=== PATIENT | female | born 1985 | race Caucasian/White ===

== ENCOUNTER 2018-04-29 22:21 | Inpatient (IN) ==
[2018-04-29] MEDS ORDERED: Sod Chloride 0.9% Inj 1,000 ML IV.SIG ONE (22:37)
--- NOTE | 2018-04-29 22:46 | ED ---
HPI General Chief complaint: Overdose Stated complaint: Psych Eval-DBPD Time Seen by Provider: 04/29/18 22:37 History of Present Illness HPI narrative: Patient is a 33-year-old female brought in by EMS under Alcocer act for evaluation after what appears to be a suicide attempt. Patient took an unknown amount of Tegretol and benzodiazepines. Patient opens her mouth and what appears to be an attempt to speak and then opens her eyes looks at me and then shuts her eyes again. She is very uncooperative with history and physical. She was examined with nurse grip assembler present all times. History severely limited by the patient's psychosis/altered mental status. Related Data Home Medications Medication Instructions Recorded Confirmed Unable to Obtain Home Meds 04/30/18 04/30/18 Allergies Allergy/AdvReac Type Severity Reaction Status Date / Time No Allergy Information Allergy Unverified 04/29/18 22:37 Available Review of Systems ROS Unobtainable unobtainable due to mental condition and unobtainable due to mental status PMFSH Medical History Medical History Mood disorder (Acute) Surgical history unknown (Acute) Social History Social History Smoking Status: Unknown if ever smoked How Often Do You Have a Drink Containing Alcohol: Monthly or less Exam Narrative Exam Narrative: Patient exam limited by altered mental status/psychosis. Exam with nurse grip assembler present all times. GENERAL: Well-developed well-nourished no obvious distress. SKIN: Focused skin assessment warm/dry. HEAD: Atraumatic. Normocephalic. EYES: Pupils equal and round. No scleral icterus. No injection or drainage. Pupils are dilated to 7-8 mm equal bilaterally. ENT: No nasal bleeding or discharge. Mucous membranes pink and moist. NECK: Trachea midline. No JVD. CARDIOVASCULAR: Regular rhythm with tachycardia. No murmur appreciated. 2+ bilateral equal pulses in all 4 extremities RESPIRATORY: No accessory muscle use. Clear to auscultation. Breath sounds equal bilaterally. GASTROINTESTINAL: Abdomen soft, non-tender, nondistended. Hepatic and splenic margins not palpable. MUSCULOSKELETAL: No obvious deformities. No clubbing. No cyanosis. No edema. NEUROLOGICAL: Awake and alert, initial GCS is [id number]. I think this was because of patient psychiatric condition/uncooperative. She then spoke a few words of history a few hours later. At 1515 reassessed and now confused and stuttering. PSYCHIATRIC: Unable to assess Course Initial Documented Vital Signs Temperature 98.4 F 04/29/18 23:02 Pulse Rate 125 H 04/29/18 23:02 Respiratory Rate 25 H 04/29/18 23:02 Blood Pressure 139/89 04/29/18 23:02 Pulse Oximetry 98 04/29/18 23:02 Last Documented Vital Signs Temperature 98.6 F 04/30/18 07:20 Pulse Rate 128 H 04/30/18 07:20 Respiratory Rate 24 04/30/18 07:20 Blood Pressure 133/84 04/30/18 07:20 Pulse Oximetry 98 04/30/18 07:20 Critical Care Time Critical Care Time: Yes Total Critical Care Time: 35 Attestation: Aggregate critical care time was 35 minutes. Time to perform other separately billable procedures was not included in the critical care time. My time did not include minutes spent treating any other patients simultaneously or on activities that did not directly contribute to the patient's treatment. The services I provided to this patient were to treat and/or prevent clinically significant deterioration that could result in: , disability, organ failure I provided critical care services requiring my management, as noted below: Chart data review, documentation time, medication orders and management, vital sign assessments/reviewing monitor data, ordering and reviewing lab tests, ordering and interpreting/reviewing x-rays and diagnostic studies, care of the patient and discussion of the patient with the admitting physicians. Medical Decision Making MDM Narrative Medical decision making narrative: Patient room to the emergency department, initially she was reluctant to speak to me, later through her evaluation she was able to talk with nursing was preferred to talk with nursing more than to me. As time went on the patient's pupils became more dilated and she is becoming more confused with a very stuttered speech pattern. Working closely with poison control, Tegretol level was checked on arrival was 19, time of 3 hours in the emergency department was redrawn and is now gone up to 21. After discussion with poison control possibility of charcoal was considered given the biliary recirculation of the drug however I do not think that the patient would be able to tolerate this very well and I fear aspiration in her. Therefore we have decided to hold it. This was discussed with Dr. Meng and she is agreeable. Patient was given 2 L normal saline and remain Arctic, given her confusion increasing I decided to give her a dose of Ativan 1 IV. Given her mental status is actually worsening requested ICU admission for the night. Per poison control patient could theoretically be cleared if she had to downgoing Tegretol levels and her mental status was improving. This was discussed with Dr. Meng. CT of the head was added on as well. We are still waiting test and urine drug screen. Patient is under Alcocer act Differential Diagnosis Differential Diagnosis: Tegretol overdose, Tylenol overdose, salicylate overdose , acidosis, electrolyte abnormality. Lab Data Result diagrams: 04/29/18 23:00 04/29/18 23:00 Lab Results 04/29/18 04/29/18 04/29/18 Range/Units 23:00 23:00 23:00 WBC 7.3 (4.0-11.0) th/mm3 RBC 5.04 (4.00-5.30) mil/mm3 Hgb 14.9 (11.6-15.3) gm/dL Hct 44.4 (35.0-46.0) % MCV 88.1 (80.0-100.0) fL MCH 29.5 (27.0-34.0) pg MCHC 33.5 (32.0-36.0) % RDW 13.3 (11.6-17.2) % Plt Count 293 (150-450) th/mm3 MPV 8.1 (7.0-11.0) fL Neut % (Auto) 60.0 (16.0-70.0) % Lymph % (Auto) 33.3 (9.0-44.0) % [place] % (Auto) 5.4 (0.0-8.0) % Eos % (Auto) 0.1 (0.0-4.0) % Baso % (Auto) 1.2 (0.0-2.0) % Neut # (Auto) 4.4 (1.8-7.7) th/mm3 Lymph # (Auto) 2.4 (1.0-4.8) th/mm3 [place] # (Auto) 0.4 (0.0-0.9) th/mm3 Eos # (Auto) 0.0 (0.0-0.4) th/mm3 Baso # (Auto) 0.1 (0.0-0.2) th/mm3 WBC Differential . Differential Comment Auto diff final Sodium 137 (136-145) meq/L Potassium 3.5 (3.5-5.1) meq/L Chloride 100 (98-107) meq/L Carbon Dioxide 22.5 (21.0-32.0) meq/L Anion Gap 15 (5-15) meq/L BUN 11 (7-18) mg/dL Creatinine 0.77 (0.50-1.00) mg/dL Estimated GFR 86 L (>89) mL/min Random Glucose 118 H (74-106) mg/dL Calcium 8.1 L (8.5-10.1) mg/dL Total Bilirubin 0.4 (0.2-1.0) mg/dL AST 47 H (15-37) U/L ALT 36 (10-53) U/L Alkaline Phosphatase 109 (45-117) U/L Total Creatine Kinase 184 (26-192) U/L Total Protein 7.6 (6.4-8.2) g/dL Albumin 4.0 (3.4-5.0) g/dL TSH 1.980 (0.358-3.740) uIU/mL Salicylates Less than 1.7 L (2.8-20.0) mg/dL Urine Opiates Screen (Neg) Acetaminophen 4.4 L (10.0-30.0) mcg/mL Ur Barbiturates Screen (Neg) Carbamazepine 19.3 H* (4.0-12.0) mcg/mL Ur Amphetamines Screen (Neg) U Benzodiazepines Scrn (Neg) Urine Cocaine Screen (Neg) U Cannabinoids Screen (Neg) Serum Alcohol 184 H (0-5) mg/dL 04/30/18 04/30/18 04/30/18 Range/Units 02:00 03:30 04:33 WBC (4.0-11.0) th/mm3 RBC (4.00-5.30) mil/mm3 Hgb (11.6-15.3) gm/dL Hct (35.0-46.0) % MCV (80.0-100.0) fL MCH (27.0-34.0) pg MCHC (32.0-36.0) % RDW (11.6-17.2) % Plt Count (150-450) th/mm3 MPV (7.0-11.0) fL Neut % (Auto) (16.0-70.0) % Lymph % (Auto) (9.0-44.0) % [place] % (Auto) (0.0-8.0) % Eos % (Auto) (0.0-4.0) % Baso % (Auto) (0.0-2.0) % Neut # (Auto) (1.8-7.7) th/mm3 Lymph # (Auto) (1.0-4.8) th/mm3 [place] # (Auto) (0.0-0.9) th/mm3 Eos # (Auto) (0.0-0.4) th/mm3 Baso # (Auto) (0.0-0.2) th/mm3 WBC Differential Differential Comment Sodium (136-145) meq/L Potassium (3.5-5.1) meq/L Chloride (98-107) meq/L Carbon Dioxide (21.0-32.0) meq/L Anion Gap (5-15) meq/L BUN (7-18) mg/dL Creatinine (0.50-1.00) mg/dL Estimated GFR (>89) mL/min Random Glucose (74-106) mg/dL Calcium (8.5-10.1) mg/dL Total Bilirubin (0.2-1.0) mg/dL AST (15-37) U/L ALT (10-53) U/L Alkaline Phosphatase (45-117) U/L Total Creatine Kinase (26-192) U/L Total Protein (6.4-8.2) g/dL Albumin (3.4-5.0) g/dL TSH (0.358-3.740) uIU/mL Salicylates (2.8-20.0) mg/dL Urine Opiates Screen Neg (Neg) Acetaminophen Less than 2.0 L (10.0-30.0) mcg/mL Ur Barbiturates Screen Neg (Neg) Carbamazepine 21.0 H* 24.6 H* (4.0-12.0) mcg/mL Ur Amphetamines Screen Neg (Neg) U Benzodiazepines Scrn Neg (Neg) Urine Cocaine Screen Neg (Neg) U Cannabinoids Screen Neg (Neg) Serum Alcohol (0-5) mg/dL 04/30/18 Range/Units 06:30 WBC (4.0-11.0) th/mm3 RBC (4.00-5.30) mil/mm3 Hgb (11.6-15.3) gm/dL Hct (35.0-46.0) % MCV (80.0-100.0) fL MCH (27.0-34.0) pg MCHC (32.0-36.0) % RDW (11.6-17.2) % Plt Count (150-450) th/mm3 MPV (7.0-11.0) fL Neut % (Auto) (16.0-70.0) % Lymph % (Auto) (9.0-44.0) % [place] % (Auto) (0.0-8.0) % Eos % (Auto) (0.0-4.0) % Baso % (Auto) (0.0-2.0) % Neut # (Auto) (1.8-7.7) th/mm3 Lymph # (Auto) (1.0-4.8) th/mm3 [place] # (Auto) (0.0-0.9) th/mm3 Eos # (Auto) (0.0-0.4) th/mm3 Baso # (Auto) (0.0-0.2) th/mm3 WBC Differential Differential Comment Sodium (136-145) meq/L Potassium (3.5-5.1) meq/L Chloride (98-107) meq/L Carbon Dioxide (21.0-32.0) meq/L Anion Gap (5-15) meq/L BUN (7-18) mg/dL Creatinine (0.50-1.00) mg/dL Estimated GFR (>89) mL/min Random Glucose (74-106) mg/dL Calcium (8.5-10.1) mg/dL Total Bilirubin (0.2-1.0) mg/dL AST (15-37) U/L ALT (10-53) U/L Alkaline Phosphatase (45-117) U/L Total Creatine Kinase (26-192) U/L Total Protein (6.4-8.2) g/dL Albumin (3.4-5.0) g/dL TSH (0.358-3.740) uIU/mL Salicylates (2.8-20.0) mg/dL Urine Opiates Screen (Neg) Acetaminophen (10.0-30.0) mcg/mL Ur Barbiturates Screen (Neg) Carbamazepine 25.7 H* (4.0-12.0) mcg/mL Ur Amphetamines Screen (Neg) U Benzodiazepines Scrn (Neg) Urine Cocaine Screen (Neg) U Cannabinoids Screen (Neg) Serum Alcohol (0-5) mg/dL Imaging Data Radiologist's impression: Head CT 04/30/18 03:03 CONCLUSION: 1. Negative noncontrast head CT. Discharge Plan Discharge Disposition Patient Disposition: 30 Still Patient Discharge Condition Condition: Serious Discharge Details Diagnosis: Carbamazepine overdose of undetermined intent Physicians Team ED Provider: Adarsh Manning Primary Care Provider: UNKNOWN, Attending Provider: Jennifer Meng Other Providers: Raymon Anderson Discharge Interventions Interventions: ED Discharge Assessment Last Done: 04/30/18 08:17 Status ED Status: Left Department Discharge Information Discharge Date/Time: 04/30/18 08:20
[2018-04-29 23:22] LABS: Baso # (Auto) 0.1 th/mm3 (0.0-0.2); Baso % (Auto) 1.2 % (0.0-2.0); Eos % (Auto) 0.1 % (0.0-4.0); Hematocrit 44.4 % (35.0-46.0); Hemoglobin 14.9 gm/dL (11.6-15.3); Lymph # (Auto) 2.4 th/mm3 (1.0-4.8); Lymph % (Auto) 33.3 % (9.0-44.0); Mean Corpuscular HGB Conc 33.5 % (32.0-36.0); Mean Corpuscular Hemoglobin 29.5 pg (27.0-34.0); Mean Corpuscular Volume 88.1 fL (80.0-100.0); Mean Platelet Volume 8.1 fL (7.0-11.0); Mono # (Auto) 0.4 th/mm3 (0.0-0.9); Mono % (Auto) 5.4 % (0.0-8.0); Neut # (Auto) 4.4 th/mm3 (1.8-7.7); Platelet Count 293 th/mm3 (150-450); Red Blood Count 5.04 mil/mm3 (4.00-5.30); Red Cell Distribution Width 13.3 % (11.6-17.2); White Blood Count 7.3 th/mm3 (4.0-11.0)
[2018-04-29 23:49] LABS: Anion Gap 15 meq/L (5-15); Aspartate Aminotransferase 47 U/L (15-37); Blood Urea Nitrogen 11 mg/dL (7-18); Calcium 8.1 mg/dL (8.5-10.1); Carbon Dioxide 22.5 meq/L (21.0-32.0); Chloride 100 meq/L (98-107); Glomerular Filtration Rate 86 mL/min (>89); Glucose,Random 118 mg/dL (74-106); Potassium 3.5 meq/L (3.5-5.1); Sodium 137 meq/L (136-145)
[2018-04-29 23:51] LABS: Alcohol 184 mg/dL (0-5)
[2018-04-29 23:59] LABS: Acetaminophen 4.4 mcg/mL (10.0-30.0); Alanine Aminotransferase 36 U/L (10-53); Alkaline Phosphatase 109 U/L (45-117); Creatine Kinase 184 U/L (26-192); Total Protein 7.6 g/dL (6.4-8.2)
[2018-04-30 00:16] LABS: Carbamazepine (Tegretol) 19.3 mcg/mL (4.0-12.0)
--- NOTE | 2018-04-30 03:49 | P.HPCC ---
History of Present Illness Service: Critical care medicine Primary Care Physician: UNKNOWN Chief Complaint: Tegretol overdose History of Present Illness: 33-year-old female with past medical history of mood disorder for which she takes Tegretol. She is here under Alcocer Act for overdose of tegretol and benzodiazepine. She is not able to tell me when she took it or how much she took. She says it is NOT extended release Tegretol. She tells me she was not trying to harm herself, that she was just trying to go to sleep. No history of seizures. Initial tegretol level was 19.3, continued uptrend. Neuro status declining during period of ED observation. Her speech is slow and dysarthric and she has nystagmus, mydriasis, ataxia. She is not able to tell me if she is prescribed any other meds. - Diagnosis (1) Carbamazepine overdose of undetermined intent Inpatient Certification: I certify that the inpatient services were ordered in accordance with Medicare regulations governing the order. This includes certification that hospital inpatient services are reasonable and necessary and in the case of services not specified as inpatient-only under 42 CFR 419.22(n), that they are appropriately provided as inpatient services in accordance to with the 2-midnight benchmark under 43 CFR 412.3(e) Review of Systems Constitutional: Denies fever(s), Denies headache(s) Eyes: Reports change in vision Ears, Nose, Mouth, and Throat: Reports dry mouth Cardiovascular: Reports fast heart rate, Denies chest pain Gastrointestinal: Denies abdominal pain Neurologic: Reports abnormal movements, Reports abnormal walking, Reports behavioral changes PMFSH - History History Provided By: Kayaking Instructor / EMT - Medical History Medical History: Medical History (Last Updated 04/30/18 @ 09:12 by Jennifer Meng MD) Mood disorder - Surgical History Surgical History: Surgical History (Last Updated 04/30/18 @ 09:12 by Jennifer Meng MD) Hx of section - Family History Family History: Family History (Last Updated 04/30/18 @ 09:12 by Jennifer Meng MD) Other No significant medical problems - Tobacco History Smoking Status: Never smoker - Alcohol History How Often Do You Have a Drink Containing Alcohol: 2 to 3 times a week - Substance Use History Substance History: No History of Abuse - Immunization History Tetanus Immunization: Unsure Hx Influenza Vaccine This Season: Unable to Assess Medications and Allergies Active Medications: Active Medications Lorazepam (Ativan Inj) 2 mg IV.PUSH Q15M PRN PRN Reason: seizure Allergies Allergy/AdvReac Type Severity Reaction Status Date / Time No Allergy Information Allergy Unverified 04/29/18 22:37 Available Home Medications Medication Instructions Recorded Confirmed Type Unable to Obtain Home Meds 04/30/18 04/30/18 History Results - Labs CBC & Chem 7: 04/29/18 23:00 04/29/18 23:00 Labs: Short CBC 04/29/18 Range/Units 23:00 WBC 7.3 (4.0-11.0) th/mm3 Hgb 14.9 (11.6-15.3) gm/dL Hct 44.4 (35.0-46.0) % Plt Count 293 (150-450) th/mm3 BMP 04/29/18 23:00 Sodium 137 Potassium 3.5 Chloride 100 Carbon Dioxide 22.5 BUN 11 Creatinine 0.77 Calcium 8.1 L Cardiac Enzymes 04/29/18 Range/Units 23:00 Total Creatine Kinase 184 (26-192) U/L Liver Function 04/29/18 Range/Units 23:00 Total Bilirubin 0.4 (0.2-1.0) mg/dL AST 47 H (15-37) U/L ALT 36 (10-53) U/L Alkaline Phosphatase 109 (45-117) U/L Albumin 4.0 (3.4-5.0) g/dL Exam Vital signs: Vital Signs 04/29/18 23:02 Temperature 98.4 F Pulse Rate 125 H Respiratory Rate 25 H Blood Pressure 139/89 Pulse Oximetry 98 Intake & Output 04/29/18 04/29/18 04/30/18 06:59 18:59 06:59 Weight 70 kg Narrative: GENERAL: Well-nourished and well-developed patient who is laying in ED stretcher. SKIN: Dry. HEAD: Atraumatic. Normocephalic. EYES: + mydriasis. No scleral icterus. No injection or drainage. ENT: No nasal bleeding or discharge. Mucous membranes dry NECK: Trachea midline. No JVD. CARDIOVASCULAR: Tachycardic, regular, sinus on the monitor with rate in the 120s. No murmurs rubs or gallops. RESPIRATORY: No accessory muscle use. Clear to auscultation. Breath sounds equal bilaterally. On room air. GASTROINTESTINAL: Abdomen soft, non-tender, nondistended. Hepatic and splenic margins not palpable. MUSCULOSKELETAL: Extremities without clubbing, cyanosis, or edema. No obvious deformities. NEUROLOGICAL: She awakens to voice and opens eyes briefly. She answers questions but is very slow to speak, dysarthric. + Horizontal nystagmus. Pupils are as per above. She moves all extremities to command, ataxic. Also spontaneous choreiform movements. No clonus Caprini VTE Risk Assessment Caprini VTE Risk Assessment: Moderate/High Risk (score >= 2) Caprini Risk Assessment Model: Point Value = 1 Point Value = 2 Point Value = 3 Point Value = 5 Age 41-60 Minor surgery BMI > 25 kg/m2 Swollen legs Varicose veins or History of unexplained or recurrent spontaneous Oral contraceptives or hormone replacement Sepsis (< 1 month) Serious lung disease, including pneumonia (< 1 month) Abnormal pulmonary function Acute myocardial infarction Congestive heart failure (< 1 month) History of inflammatory bowel disease Medical patient at bed rest Age 61-74 Arthroscopic surgery Major open surgery (> 45 min) Laparoscopic surgery (> 45 min) Malignancy Confined to bed (> 72 hours) Immobilizing plaster cast Central venous access Age >= 75 History of VTE Family history of VTE Factor V Leiden Prothrombin [id number] Lupus anticoagulant Anticardiolipin antibodies Elevated serum homocysteine Heparin-induced thrombocytopenia Other congenital or acquired thrombophilia Stroke (< 1 month) Elective arthroplasty Hip, pelvis, or leg fracture Acute spinal cord injury (< 1 month) Prophylaxis Regimen: Total Risk Factor Score Risk Level Prophylaxis Regimen 0-1 Low Early ambulation 2 Moderate Order ONE of the following: *Sequential Compression Device (SCD) *Heparin 5000 units SQ BID 3-4 Higher Order ONE of the following medications: *Heparin 5000 units SQ TID *Enoxaparin/Lovenox 40 mg SQ daily (WT < 150 kg, CrCl > 30 mL/min) *Enoxaparin/Lovenox 30 mg SQ daily (WT < 150 kg, CrCl > 10-29 mL/min) *Enoxaparin/Lovenox 30 mg SQ BID (WT < 150 kg, CrCl > 30 mL/min) AND/OR *Sequential Compression Device (SCD) 5 or more Highest Order ONE of the following medications: *Heparin 5000 units SQ TID (Preferred with Epidurals) *Enoxaparin/Lovenox 40 mg SQ daily (WT < 150 kg, CrCl > 30 mL/min) *Enoxaparin/Lovenox 30 mg SQ daily (WT < 150 kg, CrCl > 10-29 mL/min) *Enoxaparin/Lovenox 30 mg SQ BID (WT < 150 kg, CrCl > 30 mL/min) AND *Sequential Compression Device (SCD) Assessment and Plan - Problem List (1) Carbamazepine overdose of undetermined intent Code(s): T42.1X4A - Poisoning by iminostilbenes, undetermined, initial encounter Status: Acute - Assessment and Plan Plan: NEURO: Acute encephalopathy secondary to Tegretol and benzodiazepine overdose. -ataxia, nystagmus, mydriasis, vision changes, abnormal speech Alcocer act for suicidal tendencies Poison control was contacted by Dr. Manning. Serial Tegretol level every 2 hours. Neuro symptoms are progressing and expect prolonged absorption, expect level will continue to rise. Contacted Dr. Anderson and he agrees with proceeding with dialysis. Monitor QRS and QTc. If QRS prolongs, will treat with bicarb. Seizure precautions, Ativan prn seizure. CT brain negative. Psychiatry consult when she is able to participate. RESP: On room air. Monitor for airway protection. Intubate if needed. CV: Sinus tachycardia Monitor hemodynamics, monitor QRS and QTc intervals. GI: NPO until mental status improves FEN/RENAL: Serial bladder scans and in and out cath as needed for expected urinary retention Received 1 L normal saline bolus in the emergency department D5 0.9 NaCl at 100 mL/h ID: Monitor for signs and symptoms of infection HEME: Monitor CBC for signs of hematologic toxicity ENDO: Euglycemic PROPH: SCDs and heparin subcu for DVT prophylaxis. Protonix for stress ulcer prophylaxis ACCESS: Peripheral IV. Will need Vas-Cath placement. Full code Patient is critically ill with life-threatening overdose with Tegretol. Without treatment could have refractory seizures, coma, . Required urgent consultation with nephrology for initiation of hemodialysis. Critical care time 60 minutes exclusive of separately billable procedures. (1) Carbamazepine overdose of undetermined intent Qualifiers: Encounter type: initial encounter Qualified Code(s): T42.1X4A - Poisoning by iminostilbenes, undetermined, initial encounter
[2018-04-30 03:50] LABS: Amphetamine Screen,Urine Neg (Neg); Barbiturate Screen,Urine Neg (Neg); Cannabinoid Screen,Urine Neg (Neg); Cocaine Screen,Urine Neg (Neg)
[2018-04-30 03:59] LABS: Opiate Screen,Urine Neg (Neg)
--- NOTE | 2018-04-30 04:11 | CT ---
EXAM DATE: 04/30/2018 3:43 AM EDT AGE/SEX: 33 years / Female INDICATIONS: Altered mental status. Possible overdose. CLINICAL DATA: This is the patient's initial encounter. Patient reports that signs and symptoms have been present for 1 day and indicates a pain score of Nonresponsive. MEDICAL/SURGICAL HISTORY: Seizures. None. RADIATION DOSE: 56.35 CTDI (mGy) COMPARISON: No prior exams available for comparison. TECHNIQUE: CT of the head without contrast. Using automated exposure control and adjustment of the mA and/or kV according to patient size, radiation dose was kept as low as reasonably achievable to ob tain optimal diagnostic quality images. DICOM format image data is available electronically for revi ew and comparison. FINDINGS: Cerebrum: The ventricles are normal for age. No evidence of midline shift, mass lesion, hemorrhage or acute infarction. No extraaxial fluid collections are seen. Posterior Fossa: The cerebellum and brainstem are intact. The 4th ventricle is midline. The cerebe llopontine angle is unremarkable. Extracranial: The visualized portion of the orbits is intact. Skull: The calvaria is intact. No evidence of skull fracture. CONCLUSION: 1. Negative noncontrast head CT. Electronically signed by: Heri Vela MD 04/30/2018 4:10 AM EDT
[2018-04-30] MEDS ORDERED: Bisacodyl 10 MG Supp RECTAL PRN (05:30)
[2018-04-30] MEDS: Dextrose 5%/NaCl 0.9% Inj 1,000 ML IV.CONT SCH ×2 (05:57→17:46)
[2018-04-30] MEDS ORDERED: Midazolam Inj 5 MG/ML 1 ML Vial ONE (08:31)
[2018-04-30] MEDS ORDERED: Sod Chloride 0.9% Inj 1,000 ML OTHER PRN ×2 (09:11)
[2018-04-30] MEDS ORDERED: Acetaminophen 325 MG Tablet PO PRN (09:11)
[2018-04-30] MEDS ORDERED: Albumin Human 25% Inj 100 ML IV.SIG PRN (09:11)
[2018-04-30] MEDS ORDERED: Gelatin 12 MM/7 MM Topical Foam TOPICAL PRN (09:11)
[2018-04-30] MEDS ORDERED: Sod Chloride 0.9% Inj 1,000 ML IV.CONT PRN (09:11)
[2018-04-30] MEDS ORDERED: Heparin 10,000 UNITS/10 ML Vial (for IV use) OTHER PRN ×2 (09:11)
--- NOTE | 2018-04-30 09:28 | P.CONNP ---
History of Present Illness Service: Nephrology Consult date: 04/30/18 Requesting Physician: Jennifer Meng Reason for Consult: Tegretal overdose Primary Care Provider: UNKNOWN Chief Complaint: Tegretol overdose History of Present Illness: Patient is a 33 year old female with a apparent Tegretol overdose. Patient has altered mental status with slow and dysarthric speech. She was able to follow commands. in soft limb restraints. Per records patient was brought in by EMS under [place] act for evaluation after what appears to be a suicide attempt. Takes Tegretol for mood disorder. Unknown amount of Tegretol ingestion. Tegretol levels on admission elevated at 19.3 and now has risen to 25.7. Nephrology is consulted for Tegretol overdose and need for hemodialysis. Review of Systems unobtainable due to mental condition PMFSH - History History Provided By: Pack Puller / EMT - Medical History Medical History: Medical History (Last Updated 04/30/18 @ 09:12 by Jennifer Meng MD) Mood disorder - Surgical History Surgical History: Surgical History (Last Updated 04/30/18 @ 09:12 by Jennifer Meng MD) Hx of section - Family History Family History: Family History (Last Updated 04/30/18 @ 09:12 by Jennifer Meng MD) Other No significant medical problems - Tobacco History Smoking Status: Unknown if ever smoked - Alcohol History How Often Do You Have a Drink Containing Alcohol: Monthly or less - Immunization History Tetanus Immunization: Unsure Hx Influenza Vaccine This Season: Unable to Assess Medications and Allergies Active Medications: Active Medications Acetaminophen (Tylenol) 650 mg PO UNSCH PRN PRN Reason: SEE LABEL COMMENTS Al Hydroxide/Mg Hydroxide (Milk Of Ree Singh) 30 ml PO Q12H PRN PRN Reason: Mild Constipation Albuterol (Albuterol Neb (Prn)) 2.5 mg NEB Q2HR NEB PRN PRN Reason: SHORTNESS OF BREATH/WHEEZING Bisacodyl (Dulcolax Supp) 10 mg RECTAL DAILY PRN PRN Reason: SEVERE CONSITIPATION Chlorhexidine Gluconate (Chlorhexidine 2% Cloth) 3 pack TOPICAL DAILY@0400 DONNIE Stop: 05/06/18 03:59 Chlorhexidine Gluconate (Chlorhexidine 2% Cloth) 3 pack TOPICAL DAILY@0400 PRN PRN Reason: Extra cloth needed Stop: 05/06/18 03:59 Clonidine HCl (Catapres) 0.1 mg PO UNSCH PRN PRN Reason: SEE LABEL COMMENTS Diphenhydramine HCl (Benadryl) 25 mg PO UNSCH PRN PRN Reason: SEE LABEL COMMENTS Gelatin (Gelfoam 12 Mm/7 Mm Topical) 1 foam TOPICAL PRN PRN PRN Reason: help stop bleeding from site Gentamicin Sulfate (Gentamicin Inj) 20 mg OTHER WITH DIALYSIS PRN PRN Reason: Dwell Gentamycin Lock Heparin Sodium (Porcine) (Heparin Inj) 1,000 units OTHER WITH DIALYSIS PRN PRN Reason: Dwell Heparin to Fill Catheter Heparin Sodium (Porcine) (Heparin Inj) 8,000 units OTHER WITH DIALYSIS PRN PRN Reason: for machine prime Dextrose/Sodium Chloride (D5w/Normal Saline Inj) 1,000 mls @ 100 mls/hr IV.CONT .Q10H DONNIE Last Admin: 04/30/18 05:57 Dose: 100 mls/hr Albumin Human (Flexbumin 25% Inj) 100 mls @ 60 mls/hr IV.SIG WITH DIALYSIS PRN PRN Reason: hypotension / volume replace Sodium Chloride (Ns Inj) 1,000 mls @ 0 mls/hr OTHER .Q0M PRN PRN Reason: for prime and rinse back Sodium Chloride (Ns Inj) 1,000 mls @ 200 mls/hr OTHER .Q5H PRN PRN Reason: for dialyzer flush PRN Sodium Chloride (Ns Inj) 1,000 mls @ 0 mls/hr IV.CONT .Q0M PRN PRN Reason: hypotension / volume replace Lactulose (Lactulose Liq) 30 ml PO DAILY PRN PRN Reason: SEVERE CONSITIPATION Lorazepam (Ativan Inj) 2 mg IV.PUSH Q15M PRN PRN Reason: seizure Mannitol (Mannitol Inj) 12.5 gm IV.PUSH UNSCH PRN PRN Reason: hypotension / volume replace Midazolam HCl (Versed Inj) 2 mg IV.PUSH ONCE DONNIE Nitroglycerin (Nitrostat Sl) 0.4 mg SL Q5M PRN PRN Reason: CHEST PAIN Ondansetron HCl (Zofran Odt) 4 mg PO Q6H PRN PRN Reason: NAUSEA OR VOMITING Ondansetron HCl (Zofran Inj) 4 mg IV.PUSH UNSCH PRN PRN Reason: NAUSEA OR VOMITING Pantoprazole Sodium (Protonix Inj) 40 mg IV.PUSH DAILY DONNIE Senna/Docusate Sodium (Kiarra-Colace) 1 tab PO BID DONNIE Sennosides (Senokot) 17.2 mg PO Q12H PRN PRN Reason: Moderate Constipation Sodium Chloride (Ns Flush) 2 ml IV.FLUSH BID DONNIE Sodium Chloride (Ns Flush) 2 ml IV.FLUSH PRN PRN PRN Reason: FLUSH AFTER USING IV ACCESS Sodium Chloride (Ns Flush) 5 ml IV.FLUSH PRN PRN PRN Reason: flush each lumen during HD Allergies Allergy/AdvReac Type Severity Reaction Status Date / Time No Allergy Information Allergy Unverified 04/29/18 22:37 Available Home Medications Medication Instructions Recorded Confirmed Type Unable to Obtain Home Meds 04/30/18 04/30/18 History Exam Vital signs: Vital Signs 04/29/18 23:02 04/30/18 01:00 04/30/18 03:00 Temperature 98.4 F Pulse Rate 125 H 132 H 137 H Respiratory Rate 25 H 18 19 Blood Pressure 139/89 134/74 129/67 Pulse Oximetry 98 04/30/18 07:20 Temperature 98.6 F Pulse Rate 128 H Respiratory Rate 24 Blood Pressure 133/84 Pulse Oximetry 98 Intake & Output 04/29/18 04/30/18 04/30/18 18:59 06:59 18:59 Output Total 200 / 200 Balance -200 / -200 Weight 70 kg Output: Urine 200 / 200 - Constitutional mild distress - Routine HEENT Exam Head: Present: normocephalic ENT: Present: mucous membranes moist - Routine Neck Exam Present: supple. Absent: JVD - Routine Respiratory Exam Present: CTA bilaterally. Absent: rales, rhonchi, wheezes - Routine Cardiovascular Exam Present: RRR. Absent: murmur - Routine Abdominal Exam Present: soft, normoactive bowel sounds - Routine Extremities Exam Present: vascular access. Absent: edema - Routine Skin Exam Present: dry, warm - Routine Neurological Exam Present: alert, altered mental status, moving all extremities Results - Lab Results 04/29/18 23:00 04/29/18 23:00 Most recent lab results Calcium 8.1 mg/dL (8.5-10.1) L 04/29/18 23:00 Assessment and Plan - Assessment (1) Carbamazepine overdose of undetermined intent Code(s): T42.1X4A - Poisoning by iminostilbenes, undetermined, initial encounter Status: Acute Plan: Tegretol overdose Tegretol levels on admission elevated at 19.3 and now has risen to 25.7. Patient in soft limb restraints with altered mental status Hemodialysis has been ordered and initiated with vas cath. Continue to monitor Tegretol levels May only need one hemodialysis if Tegretol levels and mental status normalize. (1) Carbamazepine overdose of undetermined intent Qualifiers: Encounter type: initial encounter Qualified Code(s): T42.1X4A - Poisoning by iminostilbenes, undetermined, initial encounter
--- NOTE | 2018-04-30 14:24 | P.PCN ---
Date of procedure: 04/30/18 Pre-op diagnosis: tegretol toxicity Post-op diagnosis: same Procedure: left femoral vein dialysis catheter placement: Ultrasound guidance : Yes After sterile prepping and draping using 1% lidocaine for local infiltration anesthesia, Left femoral vein was visualized using an ultrasound vessel finder and under direct visualization was cannulated using an introducer needle with dark nonpulsatile blood return. A Guidewire was passed through the introducer needle without any resistance and the needle was then removed. After making a skin jenny and dilation of tract, a 20 cm dual lumen dialysis catheter was passed over the guidewire by modified seldinger's technique into the left femoral vein up to the 19 cm antonia and the guidewire was then removed. Good blood return obtained through both ports which were then flushed with saline and subsequently hep-locked. After suturing the catheter in place, a Bio- occlusive dressing with biopatch was applied to the site. Patient tolerated the procedure well with no immediate complications noted. Anesthesia: local Estimated blood loss (mL): 5 Condition: stable Disposition: ICU
[2018-04-30 14:57] LABS: Hepatitis A IgM Antibody Nonreactive (Nonreactive); Hepatitits B Surface Antigen Nonreactive (Nonreactive)
--- NOTE | 2018-04-30 17:13 | ECG ---
Date Performed: 04/30/2018 Time Performed: 01:54:07 PTAGE: 33 years EKG: SINUS TACHYCARDIA NONSPECIFIC T-WAVE ABNORMALITY ABNORMAL RHYTHM ECG Since the PREVIOUS TRACING , no significant change noted DOCTOR: Zohreh Velasquez Interpretating Date/Time 04/30/2018 17:12:28
--- NOTE | 2018-04-30 17:17 | ECG ---
Date Performed: 04/29/2018 Time Performed: 22:37:46 PTAGE: 33 years EKG: SINUS TACHYCARDIA POSSIBLE RIGHT VENTRICULAR CONDUCTION DELAY ABNORMAL RHYTHM ECG NO PREVIOUS TRACING DOCTOR: Zohreh Velasquez Interpretating Date/Time 04/30/2018 17:16:24
[2018-04-30] MEDS: Senna/Docusate Sodium 8.6/50 MG Tablet PO SCH ×2 (17:39→21:26)
[2018-04-30] MEDS: Pantoprazole Inj 40 MG Vial IV.PUSH SCH (17:39)
--- NOTE | 2018-04-30 21:32 | CT ---
EXAM DATE: 04/30/2018 8:51 PM EDT AGE/SEX: 33 years / Female INDICATIONS: Fall alert, fell off bed and landed on face. CLINICAL DATA: This is the patient's initial encounter. Patient reports that signs and symptoms have been present for 1 day and indicates a pain score of 4/10. MEDICAL/SURGICAL HISTORY: None. None. RADIATION DOSE: 21.96 CTDI (mGy) COMPARISON: No prior exams available for comparison. TECHNIQUE: Contiguous images in the axial and coronal planes were obtained using helical multirow de tector technique. Using automated exposure control and adjustment of the mA and/or kV according to p atient size, radiation dose was kept as low as reasonably achievable to obtain optimal diagnostic vin lity images. DICOM format image data is available electronically for review and comparison. FINDINGS: There is soft tissue swelling in the left periorbital region. Globes intact. No acute fracture identi fied. Paranasal sinuses are clear. Temporomandibular joints intact. CONCLUSION: 1. Soft tissue swelling over the left periorbital region. No acute bony abnormality. Electronically signed by: Micah Pereira MD 04/30/2018 9:31 PM EDT
--- NOTE | 2018-04-30 21:33 | CT ---
EXAM DATE: 04/30/2018 8:47 PM EDT AGE/SEX: 33 years / Female INDICATIONS: Fall alert, fell from bed landed on face. CLINICAL DATA: This is the patient's initial encounter. Patient reports that signs and symptoms have been present for 1 day and indicates a pain score of 4/10. MEDICAL/SURGICAL HISTORY: None. None. RADIATION DOSE: 56.35 CTDI (mGy) COMPARISON: [facility] – [place], CT HEAD W/O CONTRAST, 04/30/2018. . TECHNIQUE: CT of the head without contrast. Using automated exposure control and adjustment of the mA and/or kV according to patient size, radiation dose was kept as low as reasonably achievable to ob tain optimal diagnostic quality images. DICOM format image data is available electronically for revi ew and comparison. FINDINGS: Cerebrum: The ventricles are normal for age. No evidence of midline shift, mass lesion, hemorrhage or acute infarction. No extraaxial fluid collections are seen. Posterior Fossa: The cerebellum and brainstem are intact. The 4th ventricle is midline. The cerebe llopontine angle is unremarkable. Extracranial: The visualized portion of the orbits is intact. Left periorbital soft tissue swelling. Skull: The calvaria is intact. No evidence of skull fracture. CONCLUSION: 1. No acute intracranial abnormalities. Left periorbital soft tissue swelling. . Electronically signed by: Micah Pereira MD 04/30/2018 9:32 PM EDT
[2018-05-01] MEDS: Chlorhexidine Gluconate 2% 1 Pack (2 Cloths) TOPICAL SCH (04:00)
[2018-05-01] MEDS ORDERED: Chlorhexidine Gluconate 2% 1 Pack (2 Cloths) TOPICAL PRN (04:00)
[2018-05-01] MEDS: Dextrose 5%/NaCl 0.9% Inj 1,000 ML IV.CONT SCH ×2 (05:09→17:53)
[2018-05-01] MEDS: Pantoprazole Inj 40 MG Vial IV.PUSH SCH (09:53)
[2018-05-01] MEDS: Senna/Docusate Sodium 8.6/50 MG Tablet PO SCH ×2 (09:53→20:42)
--- NOTE | 2018-05-01 11:41 | P.PNNP ---
Subjective Interval history: Alert and oriented today. Hemodialysis yesterday tolerated well and now mentation at baseline <Rosy Haider - Last Filed: 05/01/18 11:37> Physical Exam Vital signs: Vital Signs 04/30/18 12:00 04/30/18 13:00 04/30/18 14:00 Temperature 98.3 F Pulse Rate 124 H 127 H 105 H Respiratory Rate 19 21 19 Blood Pressure 152/100 H 144/97 H 137/94 H Pulse Oximetry 98 96 96 04/30/18 15:00 04/30/18 15:15 04/30/18 15:30 Temperature Pulse Rate 113 H 111 H 110 H Respiratory Rate 20 3 L 6 L Blood Pressure 147/98 H 151/102 H 150/103 H Pulse Oximetry 04/30/18 15:45 04/30/18 16:00 04/30/18 16:15 Temperature Pulse Rate 106 H 112 H 113 H Respiratory Rate 5 L 24 23 Blood Pressure 144/97 H 150/106 H 159/107 H Pulse Oximetry 04/30/18 16:30 04/30/18 16:45 04/30/18 17:00 Temperature Pulse Rate 104 H 108 H 107 H Respiratory Rate 22 24 22 Blood Pressure 153/102 H 152/102 H 158/103 H Pulse Oximetry 04/30/18 17:15 04/30/18 17:30 04/30/18 17:45 Temperature Pulse Rate 99 H 98 H 97 H Respiratory Rate 16 20 20 Blood Pressure 154/102 H 144/99 H 139/97 H Pulse Oximetry 04/30/18 18:00 04/30/18 19:00 04/30/18 20:00 Temperature 98.9 F Pulse Rate 98 H 105 H 103 H Respiratory Rate 19 21 25 H Blood Pressure 137/99 H 156/106 H 160/104 H Pulse Oximetry 95 95 04/30/18 20:28 04/30/18 20:36 04/30/18 21:00 Temperature 98.9 F Pulse Rate 116 H 108 H Respiratory Rate 24 21 Blood Pressure 143/97 H 145/91 H Pulse Oximetry 95 94 L 97 04/30/18 21:28 04/30/18 22:00 04/30/18 22:28 Temperature Pulse Rate 108 H 93 H 93 H Respiratory Rate 21 15 15 Blood Pressure 145/91 H 143/95 H 143/95 H Pulse Oximetry 97 99 99 04/30/18 23:00 04/30/18 23:28 05/01/18 00:00 Temperature 98.3 F Pulse Rate 110 H 110 H 91 H Respiratory Rate 26 H 26 H 14 Blood Pressure 147/95 H 147/95 H 148/91 H Pulse Oximetry 99 99 100 05/01/18 01:00 05/01/18 02:00 05/01/18 03:00 Temperature Pulse Rate 90 91 H 91 H Respiratory Rate 17 18 18 Blood Pressure 146/94 H 131/87 131/87 Pulse Oximetry 98 97 97 05/01/18 03:28 05/01/18 04:00 05/01/18 05:00 Temperature 98.7 F Pulse Rate 91 H 102 H 96 H Respiratory Rate 18 16 19 Blood Pressure 131/87 144/92 H 146/98 H Pulse Oximetry 97 98 98 05/01/18 06:00 05/01/18 07:00 05/01/18 07:15 Temperature Pulse Rate 89 84 84 Respiratory Rate 16 16 15 Blood Pressure 138/96 H 141/94 H 137/94 H Pulse Oximetry 98 98 99 05/01/18 07:28 05/01/18 08:00 05/01/18 08:10 Temperature 98.2 F Pulse Rate 86 87 Respiratory Rate 15 16 Blood Pressure 157/106 H 137/88 Pulse Oximetry 98 98 98 05/01/18 08:15 05/01/18 08:30 05/01/18 08:45 Temperature Pulse Rate 86 116 H 106 H Respiratory Rate 14 24 17 Blood Pressure 136/89 157/106 H 152/102 H Pulse Oximetry 98 99 98 05/01/18 09:00 05/01/18 09:15 05/01/18 09:30 Temperature Pulse Rate 97 H 87 92 H Respiratory Rate 17 16 9 L Blood Pressure 143/100 H 141/100 H 140/98 H Pulse Oximetry 98 97 99 05/01/18 09:45 05/01/18 10:00 Temperature Pulse Rate 100 H 97 H Respiratory Rate 21 17 Blood Pressure 148/91 H 137/88 Pulse Oximetry 98 97 Intake & Output 04/30/18 05/01/18 05/01/18 18:59 06:59 18:59 Intake Total 1000 / 1000 1000 / 1000 Output Total 1600 / 1600 850 / 850 Balance -600 / -600 150 / 150 Intake: IV 1000 / 1000 1000 / 1000 D5W/Normal Saline Inj 1,000 ML 1000 / 1000 1000 / 1000 @ 100 mls/hr IV.CONT .Q10H DONNIE Rx#:[id number] Oral 0 / 0 Output: Urine 200 / 200 850 / 850 Urine Amount (Catheter) 1400 / 1400 Indwelling Urethral Catheter 1400 / 1400 Other: # Bowel Movements 0 - Constitutional no acute distress - Routine HEENT Exam Head: Present: normocephalic - Routine Neck Exam Present: supple. Absent: JVD - Routine Respiratory Exam Present: decreased breath sounds. Absent: rales, rhonchi, wheezes - Routine Cardiovascular Exam Present: RRR, murmur - Routine Abdominal Exam Present: soft, normoactive bowel sounds - Routine Extremities Exam Present: vascular access. Absent: edema - Routine Skin Exam Present: dry, warm - Routine Neurological Exam Present: alert, oriented X3 - Routine Psychiatric Exam Present: cooperative - Urinary Catheter Management Indwelling Urethral Catheter Cath placed during this visit: yes Reason for continuing: Acute urinary retention Insertion date: 04/30/18 Insertion time: 13:15 <Rosy Haider - Last Filed: 05/01/18 11:37> Vital signs: Vital Signs 04/30/18 20:00 04/30/18 20:28 04/30/18 20:36 Temperature 98.9 F 98.9 F Pulse Rate 103 H 116 H Respiratory Rate 25 H 24 Blood Pressure 160/104 H 143/97 H Pulse Oximetry 95 95 94 L 04/30/18 21:00 04/30/18 21:28 04/30/18 22:00 Temperature Pulse Rate 108 H 108 H 93 H Respiratory Rate 21 21 15 Blood Pressure 145/91 H 145/91 H 143/95 H Pulse Oximetry 97 97 99 04/30/18 22:28 04/30/18 23:00 04/30/18 23:28 Temperature Pulse Rate 93 H 110 H 110 H Respiratory Rate 15 26 H 26 H Blood Pressure 143/95 H 147/95 H 147/95 H Pulse Oximetry 99 99 99 05/01/18 00:00 05/01/18 01:00 05/01/18 02:00 Temperature 98.3 F Pulse Rate 91 H 90 91 H Respiratory Rate 14 17 18 Blood Pressure 148/91 H 146/94 H 131/87 Pulse Oximetry 100 98 97 05/01/18 03:00 05/01/18 03:28 05/01/18 04:00 Temperature 98.7 F Pulse Rate 91 H 91 H 102 H Respiratory Rate 18 18 16 Blood Pressure 131/87 131/87 144/92 H Pulse Oximetry 97 97 98 05/01/18 05:00 05/01/18 06:00 05/01/18 07:00 Temperature Pulse Rate 96 H 89 84 Respiratory Rate 19 16 16 Blood Pressure 146/98 H 138/96 H 141/94 H Pulse Oximetry 98 98 98 05/01/18 07:15 05/01/18 07:28 05/01/18 08:00 Temperature 98.2 F Pulse Rate 84 86 87 Respiratory Rate 15 15 16 Blood Pressure 137/94 H 157/106 H 137/88 Pulse Oximetry 99 98 98 05/01/18 08:10 05/01/18 08:15 05/01/18 08:30 Temperature Pulse Rate 86 116 H Respiratory Rate 14 24 Blood Pressure 136/89 157/106 H Pulse Oximetry 98 98 99 05/01/18 08:45 05/01/18 09:00 05/01/18 09:15 Temperature Pulse Rate 106 H 97 H 87 Respiratory Rate 17 17 16 Blood Pressure 152/102 H 143/100 H 141/100 H Pulse Oximetry 98 98 97 05/01/18 09:30 05/01/18 09:45 05/01/18 10:00 Temperature Pulse Rate 92 H 100 H 97 H Respiratory Rate 9 L 21 17 Blood Pressure 140/98 H 148/91 H 137/88 Pulse Oximetry 99 98 97 05/01/18 11:00 05/01/18 11:15 05/01/18 11:30 Temperature Pulse Rate 86 103 H 96 H Respiratory Rate 16 37 H 20 Blood Pressure 138/97 H 141/101 H 152/103 H Pulse Oximetry 98 94 L 98 05/01/18 11:45 05/01/18 12:00 05/01/18 13:00 Temperature Pulse Rate 99 H 97 H 98 H Respiratory Rate 16 17 16 Blood Pressure 162/103 H 136/85 141/97 H Pulse Oximetry 98 97 97 05/01/18 13:15 05/01/18 13:30 05/01/18 13:45 Temperature Pulse Rate 105 H 111 H 94 H Respiratory Rate 13 14 12 Blood Pressure 137/96 H 141/98 H 139/93 H Pulse Oximetry 97 98 97 05/01/18 14:00 05/01/18 14:15 05/01/18 14:31 Temperature Pulse Rate 93 H 99 H 108 H Respiratory Rate 17 15 25 H Blood Pressure 129/93 H 138/98 H 135/92 H Pulse Oximetry 97 97 97 05/01/18 14:45 05/01/18 15:00 05/01/18 15:28 Temperature 98.3 F Pulse Rate 103 H 95 H 93 H Respiratory Rate 18 13 11 L Blood Pressure 135/84 117/74 115/71 Pulse Oximetry 97 98 05/01/18 16:00 05/01/18 16:15 05/01/18 16:30 Temperature Pulse Rate 95 H 99 H 101 H Respiratory Rate 11 L 10 L 10 L Blood Pressure 119/74 117/70 117/72 Pulse Oximetry 96 95 94 L 05/01/18 16:45 05/01/18 17:00 05/01/18 18:00 Temperature Pulse Rate 95 H 96 H 113 H Respiratory Rate 9 L 13 19 Blood Pressure 119/71 116/69 131/77 Pulse Oximetry 94 L 93 L 95 05/01/18 18:15 Temperature Pulse Rate 100 H Respiratory Rate 16 Blood Pressure 132/96 H Pulse Oximetry 96 Intake & Output 05/01/18 05/01/18 05/02/18 06:59 18:59 06:59 Intake Total 1000 / 1000 1000 / 1000 Output Total 850 / 850 950 / 950 Balance 150 / 150 50 / 50 Intake: IV 1000 / 1000 1000 / 1000 D5W/Normal Saline Inj 1,000 ML 1000 / 1000 1000 / 1000 @ 100 mls/hr IV.CONT .Q10H [facility] Rx#:[id number] Oral 0 / 0 Output: Urine 850 / 850 250 / 250 Urine Amount (Catheter) 700 / 700 Indwelling Urethral Catheter 700 / 700 Other: # Bowel Movements 0 - Urinary Catheter Management Indwelling Urethral Catheter Cath placed during this visit: no <Raymon Anderson - Last Filed: 05/01/18 19:11> Assessment and Plan - Assessment (1) Carbamazepine overdose of undetermined intent Code(s): T42.1X4A - Poisoning by iminostilbenes, undetermined, initial encounter Status: Acute Qualifiers: Encounter type: initial encounter Qualified Code(s): T42.1X4A - Poisoning by iminostilbenes, undetermined, initial encounter Plan: Tegretol overdose Tegretol levels on admission elevated at 19.3 and now has risen to 25.7 with altered mental status on day of consult Hemodialysis done yesterday tolerated well Tegretol levels trending downward Patient mentation has returned to baseline. Will remove vas cath, no further dialysis necessary Will sign off, if needed please call. <oRsy Haider - Last Filed: 05/01/18 11:37> - Assessment (1) Carbamazepine overdose of undetermined intent Code(s): T42.1X4A - Poisoning by iminostilbenes, undetermined, initial encounter Status: Acute Qualifiers: Encounter type: initial encounter Qualified Code(s): T42.1X4A - Poisoning by iminostilbenes, undetermined, initial encounter - Attending Attestation Patient seen and examine, agree with above. Neurologically better, Tegretol level is better. No mor e HD. D/C Vascath. I will sign off from Nephrology. <Raymon Anderson - Last Filed: 05/01/18 19:11>
--- NOTE | 2018-05-01 12:49 | P.PNCC ---
Subjective Subjective Remarks/Hospital Course: 04/30: 33-year-old female with past medical history of mood disorder for which she takes Tegretol. She is here under [employer] for overdose of tegretol and benzodiazepine. She is not able to tell me when she took it or how much she took. She says it is NOT extended release Tegretol. She tells me she was not trying to harm herself, that she was just trying to go to sleep. No history of seizures. Initial tegretol level was 19.3, continued uptrend. Neuro status declining during period of ED observation. Her speech is slow and dysarthric and she has nystagmus, mydriasis, ataxia. She is not able to tell me if she is prescribed any other meds. 05/01: Patient was dialyzed yesterday for elevated Tegretol levels and altered mental status. Her mental status is much better today. Patient fell last night , head CT negative for bleed. She has some ecchymosis around left eye. She knows she is at the hospital. She knows it is 2017. She follows commands appropriately. Not in any acute distress. Objective Vital Signs / I&O: Vital Signs 04/30/18 13:00 04/30/18 14:00 04/30/18 15:00 Temperature Pulse Rate 127 H 105 H 113 H Respiratory Rate 21 19 20 Blood Pressure 144/97 H 137/94 H 147/98 H Pulse Oximetry 96 96 04/30/18 15:15 04/30/18 15:30 04/30/18 15:45 Temperature Pulse Rate 111 H 110 H 106 H Respiratory Rate 3 L 6 L 5 L Blood Pressure 151/102 H 150/103 H 144/97 H Pulse Oximetry 04/30/18 16:00 04/30/18 16:15 04/30/18 16:30 Temperature Pulse Rate 112 H 113 H 104 H Respiratory Rate 24 23 22 Blood Pressure 150/106 H 159/107 H 153/102 H Pulse Oximetry 04/30/18 16:45 04/30/18 17:00 04/30/18 17:15 Temperature Pulse Rate 108 H 107 H 99 H Respiratory Rate 24 22 16 Blood Pressure 152/102 H 158/103 H 154/102 H Pulse Oximetry 04/30/18 17:30 04/30/18 17:45 04/30/18 18:00 Temperature Pulse Rate 98 H 97 H 98 H Respiratory Rate 20 20 19 Blood Pressure 144/99 H 139/97 H 137/99 H Pulse Oximetry 04/30/18 19:00 04/30/18 20:00 04/30/18 20:28 Temperature 98.9 F 98.9 F Pulse Rate 105 H 103 H 116 H Respiratory Rate 21 25 H 24 Blood Pressure 156/106 H 160/104 H 143/97 H Pulse Oximetry 95 95 95 04/30/18 20:36 04/30/18 21:00 04/30/18 21:28 Temperature Pulse Rate 108 H 108 H Respiratory Rate 21 21 Blood Pressure 145/91 H 145/91 H Pulse Oximetry 94 L 97 97 04/30/18 22:00 04/30/18 22:28 04/30/18 23:00 Temperature Pulse Rate 93 H 93 H 110 H Respiratory Rate 15 15 26 H Blood Pressure 143/95 H 143/95 H 147/95 H Pulse Oximetry 99 99 99 04/30/18 23:28 05/01/18 00:00 05/01/18 01:00 Temperature 98.3 F Pulse Rate 110 H 91 H 90 Respiratory Rate 26 H 14 17 Blood Pressure 147/95 H 148/91 H 146/94 H Pulse Oximetry 99 100 98 05/01/18 02:00 05/01/18 03:00 05/01/18 03:28 Temperature Pulse Rate 91 H 91 H 91 H Respiratory Rate 18 18 18 Blood Pressure 131/87 131/87 131/87 Pulse Oximetry 97 97 97 05/01/18 04:00 05/01/18 05:00 05/01/18 06:00 Temperature 98.7 F Pulse Rate 102 H 96 H 89 Respiratory Rate 16 19 16 Blood Pressure 144/92 H 146/98 H 138/96 H Pulse Oximetry 98 98 98 05/01/18 07:00 05/01/18 07:15 05/01/18 07:28 Temperature Pulse Rate 84 84 86 Respiratory Rate 16 15 15 Blood Pressure 141/94 H 137/94 H 157/106 H Pulse Oximetry 98 99 98 05/01/18 08:00 05/01/18 08:10 05/01/18 08:15 Temperature 98.2 F Pulse Rate 87 86 Respiratory Rate 16 14 Blood Pressure 137/88 136/89 Pulse Oximetry 98 98 98 05/01/18 08:30 05/01/18 08:45 05/01/18 09:00 Temperature Pulse Rate 116 H 106 H 97 H Respiratory Rate 24 17 17 Blood Pressure 157/106 H 152/102 H 143/100 H Pulse Oximetry 99 98 98 05/01/18 09:15 05/01/18 09:30 05/01/18 09:45 Temperature Pulse Rate 87 92 H 100 H Respiratory Rate 16 9 L 21 Blood Pressure 141/100 H 140/98 H 148/91 H Pulse Oximetry 97 99 98 05/01/18 10:00 05/01/18 11:00 05/01/18 11:15 Temperature Pulse Rate 97 H 86 103 H Respiratory Rate 17 16 37 H Blood Pressure 137/88 138/97 H 141/101 H Pulse Oximetry 97 98 94 L 05/01/18 11:30 05/01/18 11:45 05/01/18 12:00 Temperature Pulse Rate 96 H 99 H 97 H Respiratory Rate 20 16 17 Blood Pressure 152/103 H 162/103 H 136/85 Pulse Oximetry 98 98 97 Intake & Output 04/30/18 05/01/18 05/01/18 18:59 06:59 18:59 Intake Total 1000 / 1000 1000 / 1000 Output Total 1600 / 1600 850 / 850 Balance -600 / -600 150 / 150 Intake: IV 1000 / 1000 1000 / 1000 D5W/Normal Saline Inj 1,000 ML 1000 / 1000 1000 / 1000 @ 100 mls/hr IV.CONT .Q10H DONNIE Rx#:[id number] Oral 0 / 0 Output: Urine 200 / 200 850 / 850 Urine Amount (Catheter) 1400 / 1400 Indwelling Urethral Catheter 1400 / 1400 Other: # Bowel Movements 0 Result Diagrams: 04/29/18 23:00 04/29/18 23:00 Objective Remarks: HEENT/Neuro: No pallor or icterus, ecchymosis around left eye, tongue moist, [id number], Awake alert oriented 3, nonfocal grossly, moving all 4 extremities Neck: No JVD Chest/pulmonary: CTA bilaterally Cardiovascular: S1-S2 regular no gallop or murmur GI/abdomen: Soft, nontender, bowel sounds present Extremities: Warm bilaterally, no edema Assessment and Plan - Assessment and Plan Plan: NEURO: Acute encephalopathy secondary to Tegretol and benzodiazepine overdose. -ataxia, nystagmus, mydriasis, vision changes, abnormal speech [employer] act for suicidal tendencies Poison control was contacted by Dr. Manning. Emergently dialyzed yesterday for elevated Tegretol levels. Tegretol level 15 this morning coming down. Monitor QRS and QTc. If QRS prolongs, will treat with bicarb. Seizure precautions, Ativan prn seizure. CT brain negative. Psychiatry consulted. RESP: On room air. Monitor for airway protection. Intubate if needed. CV: Sinus tachycardia Monitor hemodynamics, monitor QRS and QTc intervals. GI: Advance p.o. diet as tolerated. FEN/RENAL: Discontinue Miner catheter. Status post emergent hemodialysis for elevated Tegretol level on 04/30. Vas-Cath to be discontinued. Nephrology consult noted. ID: Monitor for signs and symptoms of infection HEME: Monitor CBC for signs of hematologic toxicity ENDO: Euglycemic PROPH: SCDs and heparin subcu for DVT prophylaxis. Protonix for stress ulcer prophylaxis ACCESS: Peripheral IV. Will need Vas-Cath placement. Full code Patient is critically ill with life-threatening overdose with Tegretol. Without treatment could have refractory seizures, coma, . Required urgent consultation with nephrology for initiation of hemodialysis. Critical care time 40 minutes exclusive of separately billable procedures.
--- NOTE | 2018-05-01 13:18 | P.CONPSY ---
Provisional Diagnosis Admission Date: April 30, 2018 03:14 Otho I.: Major depressive disorder, recurrent, severe, without psychosis, alcohol induced mood disorder, alcohol use disorder Otho II.: Unspecified personality disorder, cluster B traits identified Otho III.: Seizures History of Present Illness Service: Critical care Primary Care Provider: UNKNOWN Chief Complaint: Tegretol overdose History of Present Illness: The patient is a 33-year-old woman, domiciled with her parents and 18 month of daughter in [place], here in [facility] for medications, single, employed, with a psychiatric history of anxiety and depression, no previous psychiatric hospitalizations, no previous suicide attempts, severe alcohol use disorder, medical history of seizures secondary to alcohol withdrawal, who is here under [place] [place] for overdose of Tegretol and benzodiazepine. On initial presentation she was not able to tell to ER doctor when she took it or how much she took. She said it was NOT extended release Tegretol. She tells Er doctors she was not trying to harm herself, that she was just trying to go to sleep. No history of seizures. Initial tegretol level was 19.3, continued uptrend. Neuro status declining during period of ED observation. Her speech was initially slow and dysarthric and she has nystagmus, mydriasis, ataxia. The patient was dialyzed for elevated Tegretol and given her mental status. Her brain CT is negative. Consulted to psychiatry to address suicidal attempt. Psychiatric evaluation I find a patient that is still lethargic, but able to answer some of my questions. The patient seems to be a little bit confused, vague and contradictory regarding her recent suicidal attempt. The patient reports that she was not trying to commit suicide, she just wanted to take a "couple of pills " of her medications to sleep. The patient clarifies that she was here on vacation with her parents, everything was going okay, she became quite drunk "I do not really remember what happened to be honest". Patient is unable to clarify what is her psychiatric history, she says that she is not sure what is the reason to think carbamazepine, at the beginning she said that she is bipolar , but then she denies that. She says that "my primary physician is prescribing clonazepam and Tegretol for anxiety". When I try to clarify that Tegretol is not a medication indicated for anxiety, the patient became quite upset and irritable. The patient is just partially oriented in time and place, at times confused with fluctuating level of consciousness. I got collateral information from her mother Vijaya Dave, who clarifies that the patient has history of bipolar disorder, poor impulse control disorder, but she does not have a lot of details about her medications. She does say that the patient is an alcoholic, but at the same time she also reports that the patient has being verbalizing suicidal ideation repeatedly in the last week, "and at the same time going crazy things, like spending a lot of time in buttocks and tattoos in her body". The mother explains that the patient has been in several detox rehabs in the past, which he does not complete them. Her mother cannot specify if the patient had any recent acute stressor that might account for a suicide attempt. Her mother is in agreement that the patient is to be admitted in psychiatry for stabilization and safety and she needs treatment for severe alcoholism and depression. Past psychiatric history: History of anxiety and depression as per patient, as per mother the patient has bipolar disorder. No prepsychotic hospitalizations, she denies suicidal attempts. She is on carbamazepine and clonazepam, unknown dose. Past family history: There is no family members with psychiatric problems Past medical history: The patient has a history of seizures secondary to alcohol withdrawal Substance history: Patient denies the use of illegal drugs, but reports daily use of alcohol, she refuses to quantify the amount, but she has been detox rehabs in the past, she has history of withdrawal induced seizures Social history: The patient was born and raised in [place], she lives in [place] with her parents an 18 month old daughter, she is single, employed, her highest level of education is associated degree Review of Systems Constitutional: Denies anorexia, Denies body ache(s), Denies chills, Denies daytime sleepiness, Denies excessive sweating, Denies fatigue, Denies fever(s), Denies headache(s), Denies increased appetite, Denies lack of energy, Denies malaise, Denies night sweats, Denies weakness, Denies weight gain, Denies weight loss, Denies other Eyes: Denies blind spots, Denies blurry vision, Denies bulging eyes, Denies change in vision, Denies double vision, Denies discharge, Denies dry eyes, Denies floaters, Denies irritation, Denies itchy eyes, Denies loss of vision, Denies pain, Denies requires corrective lenses, Denies sensitivity to light, Denies other Ears, Nose, Mouth, and Throat: Denies abnormal hearing, Denies bleeding gums, Denies bad breath, Denies change in voice, Denies dental pain, Denies difficulty swallowing, Denies dizziness, Denies dry mouth, Denies ear discharge , Denies ear pain, Denies facial pain, Denies headache(s), Denies hearing loss, Denies hoarseness, Denies lip swelling, Denies nosebleed, Denies mouth lesions, Denies mouth pain, Denies nasal congestion, Denies nasal discharge, Denies nasal obstruction, Denies nasal trauma, Denies neck lump, Denies neck pain, Denies nose pain, Denies pain with swallowing, Denies poor balance, Denies post nasal drip, Denies ringing in the ears, Denies sinus pain, Denies sinus pressure , Denies sore throat, Denies throat swelling, Denies tongue swelling, Denies other Cardiovascular: Denies chest pain, Denies chest pain at rest, Denies chest pain with activity, Denies excessive sweating, Denies fainting, Denies fast heart rate, Denies foot swelling, Denies generalized swelling, Denies irregular heart rhythm, Denies leg pain with activity, Denies leg sores, Denies leg swelling, Denies lightheadedness, Denies radiating jaw, neck or arm pain, Denies rapid, pounding, or irregular heartbeat, Denies shortness of breath, Denies shortness of breath with activity, Denies shortness of breath when lying down, Denies shortness of breath causing sudden awakening, Denies slow heart rate, Denies other Respiratory: Denies change in phlegm color, Denies chest congestion, Denies cough, Denies coughing up blood, Denies excessive phlegm production, Denies pain on inspiration, Denies pain with cough, Denies shortness of breath, Denies shortness of breath with activity, Denies snoring, Denies stridor, Denies wheezing, Denies other Gastrointestinal: Denies abdominal pain, Denies belching, Denies black, tarry stools, Denies bloating, Denies bright, red blood in stools, Denies change in bowel habits, Denies constant urge to pass stool, Denies change in stools, Denies coffee ground vomit, Denies constipation, Denies cramping, Denies difficulty swallowing, Denies excessive passing of gas, Denies feeling full early, Denies heartburn, Denies incontinent of stools, Denies loose stools, Denies nausea, Denies pain with swallowing, Denies vomiting, Denies vomiting blood, Denies other Genitourinary: Denies abnormal periods, Denies abnormal vaginal bleeding, Denies absent period, Denies bleeding between periods, Denies blood in urine, Denies difficulty starting urination, Denies difficulty urinating, Denies dribbling after urination, Denies frequent nighttime urination, Denies genital itching, Denies genital lesions, Denies heavy periods, Denies hot flashes, Denies light periods, Denies nipple discharge, Denies painful intercourse, Denies painful periods, Denies painful urination, Denies pelvic pain, Denies prolapse symptoms, Denies sexual problems, Denies side pain, Denies urinary incontinence, Denies urinary urgency, Denies vaginal discharge, Denies vaginal dryness, Denies vaginal odor, Denies vaginal itching, Denies other Musculoskeletal: Denies abnormal walking, Denies back pain, Denies body aches, Denies decreased muscle mass, Denies deformity, Denies joint pain, Denies joint swelling, Denies limited joint movement, Denies loss of height, Denies muscle cramps, Denies muscle weakness, Denies neck pain, Denies numbness, Denies radiating pain into limb, Denies stiffness, Denies tingling, Denies other Skin/Breast: Denies acne, Denies bleeding lesions, Denies boil, Denies breast swelling, Denies breast skin changes, Denies breast pain, Denies breast lump, Denies change in breast shape, Denies change in hair, Denies change in skin color, Denies changing lesions, Denies dry skin, Denies excessive hair growth, Denies hair loss, Denies itching, Denies lesions, Denies nail changes, Denies new lesions, Denies nipple discharge, Denies non-healing lesions, Denies redness , Denies sensitivity to light, Denies rash, Denies skin pain, Denies skin ulcer , Denies sores, Denies stretch goyal, Denies unusual bruising, Denies wounds, Denies yellowing of the skin, Denies other Neurologic: Denies abnormal hearing, Denies abnormal movements, Denies abnormal speech, Denies abnormal walking, Denies behavioral changes, Denies burning sensations, Denies confusion, Denies dizziness, Denies fainting, Denies frequent falls, Denies headache(s), Denies lack of coordination, Denies localized weakness, Denies loss of vision, Denies memory loss, Denies numbness, Denies other visual disturbances, Denies radiating pain, Denies restless legs, Denies convulsions, Denies seizure-like activity, Denies sensory deficit, Denies tingling, Denies tingling/numbness/burning sensations, Denies tremor(s), Denies unsteadiness, Denies weakness, Denies other Psychiatric: Reports anxiety, Reports irritability, Reports memory loss, Reports thoughts of hurting/killing yourself, Denies abnormal sleep pattern, Denies behavioral changes, Denies change in appetite, Denies change in sex drive , Denies confusion, Denies depression, Denies difficulty concentrating, Denies hearing things others do not hear, Denies hopelessness, Denies lack of enjoyment , Denies mood swings, Denies panic attacks, Denies paranoia, Denies seeing things others do not see, Denies sensing things others do not sense, Denies tactile hallucinations, Denies thoughts of hurting/killing others, Denies other Endocrine: Denies cold intolerance, Denies excessive sweating, Denies flushing, Denies heat intolerance, Denies increased hunger, Denies increased thirst, Denies increased urination, Denies rapid, pounding, or irregular heartbeat, Denies other PMFSH - History History Provided By: Drywall Stripper Helper / EMT - Medical History Medical History: Medical History (Last Updated 04/30/18 @ 09:12 by Jennifer Meng MD) Mood disorder - Surgical History Surgical History: Surgical History (Last Updated 04/30/18 @ 09:12 by Jennifer Meng MD) Hx of section - Family History Family History: Family History (Last Updated 04/30/18 @ 09:12 by Jennifer Meng MD) Other No significant medical problems - Tobacco History Smoking Status: Cognitive impairment - Alcohol History How Often Do You Have a Drink Containing Alcohol: Unable to Obtain - Substance Use History Substance History: No History of Abuse - Immunization History Tetanus Immunization: Unsure Hx Influenza Vaccine This Season: Unable to Assess Medications and Allergies Active Medications: Active Medications Acetaminophen (Tylenol) 650 mg PO UNSCH PRN PRN Reason: SEE LABEL COMMENTS Al Hydroxide/Mg Hydroxide (Milk Of Ree Singh) 30 ml PO Q12H PRN PRN Reason: Mild Constipation Albuterol (Albuterol Neb (Prn)) 2.5 mg NEB Q2HR NEB PRN PRN Reason: SHORTNESS OF BREATH/WHEEZING Bisacodyl (Dulcolax Supp) 10 mg RECTAL DAILY PRN PRN Reason: SEVERE CONSITIPATION Chlorhexidine Gluconate (Chlorhexidine 2% Cloth) 3 pack TOPICAL DAILY@0400 DONNIE Stop: 05/06/18 03:59 Last Admin: 05/01/18 04:00 Dose: 3 pack Chlorhexidine Gluconate (Chlorhexidine 2% Cloth) 3 pack TOPICAL DAILY@0400 PRN PRN Reason: Extra cloth needed Stop: 05/06/18 03:59 Clonidine HCl (Catapres) 0.1 mg PO UNSCH PRN PRN Reason: SEE LABEL COMMENTS Diphenhydramine HCl (Benadryl) 25 mg PO UNSCH PRN PRN Reason: SEE LABEL COMMENTS Gelatin (Gelfoam 12 Mm/7 Mm Topical) 1 foam TOPICAL PRN PRN PRN Reason: help stop bleeding from site Gentamicin Sulfate (Gentamicin Inj) 20 mg OTHER WITH DIALYSIS PRN PRN Reason: Dwell Gentamycin Lock Heparin Sodium (Porcine) (Heparin Inj) 1,000 units OTHER WITH DIALYSIS PRN PRN Reason: Dwell Heparin to Fill Catheter Heparin Sodium (Porcine) (Heparin Inj) 8,000 units OTHER WITH DIALYSIS PRN PRN Reason: for machine prime Dextrose/Sodium Chloride (D5w/Normal Saline Inj) 1,000 mls @ 100 mls/hr IV.CONT .Q10H [facility] Last Admin: 05/01/18 05:09 Dose: 100 mls/hr Albumin Human (Flexbumin 25% Inj) 100 mls @ 60 mls/hr IV.SIG WITH DIALYSIS PRN PRN Reason: hypotension / volume replace Sodium Chloride (Ns Inj) 1,000 mls @ 0 mls/hr OTHER .Q0M PRN PRN Reason: for prime and rinse back Sodium Chloride (Ns Inj) 1,000 mls @ 200 mls/hr OTHER .Q5H PRN PRN Reason: for dialyzer flush PRN Sodium Chloride (Ns Inj) 1,000 mls @ 0 mls/hr IV.CONT .Q0M PRN PRN Reason: hypotension / volume replace Lactulose (Lactulose Liq) 30 ml PO DAILY PRN PRN Reason: SEVERE CONSITIPATION Lorazepam (Ativan Inj) 2 mg IV.PUSH Q15M PRN PRN Reason: seizure Last Admin: 04/30/18 09:03 Dose: 2 mg Mannitol (Mannitol Inj) 12.5 gm IV.PUSH UNSCH PRN PRN Reason: hypotension / volume replace Midazolam HCl (Versed Inj) 2 mg IV.PUSH ONCE DONNIE Nitroglycerin (Nitrostat Sl) 0.4 mg SL Q5M PRN PRN Reason: CHEST PAIN Ondansetron HCl (Zofran Odt) 4 mg PO Q6H PRN PRN Reason: NAUSEA OR VOMITING Ondansetron HCl (Zofran Inj) 4 mg IV.PUSH UNSCH PRN PRN Reason: NAUSEA OR VOMITING Pantoprazole Sodium (Protonix Inj) 40 mg IV.PUSH DAILY DONNIE Last Admin: 05/01/18 09:53 Dose: 40 mg Senna/Docusate Sodium (Kiarra-Colace) 1 tab PO BID [facility] Last Admin: 05/01/18 09:53 Dose: 1 tab Sennosides (Senokot) 17.2 mg PO Q12H PRN PRN Reason: Moderate Constipation Sodium Chloride (Ns Flush) 2 ml IV.FLUSH BID [facility] Last Admin: 05/01/18 09:53 Dose: 2 ml Sodium Chloride (Ns Flush) 2 ml IV.FLUSH PRN PRN PRN Reason: FLUSH AFTER USING IV ACCESS Sodium Chloride (Ns Flush) 5 ml IV.FLUSH PRN PRN PRN Reason: flush each lumen during HD Allergies Allergy/AdvReac Type Severity Reaction Status Date / Time No Allergy Information Allergy Unverified 04/29/18 22:37 Available Home Medications Medication Instructions Recorded Confirmed Type Unable to Obtain Home Meds 04/30/18 04/30/18 History Exam Vital signs: Vital Signs 04/30/18 13:00 04/30/18 14:00 04/30/18 15:00 Temperature Pulse Rate 127 H 105 H 113 H Respiratory Rate 21 19 20 Blood Pressure 144/97 H 137/94 H 147/98 H Pulse Oximetry 96 96 04/30/18 15:15 04/30/18 15:30 04/30/18 15:45 Temperature Pulse Rate 111 H 110 H 106 H Respiratory Rate 3 L 6 L 5 L Blood Pressure 151/102 H 150/103 H 144/97 H Pulse Oximetry 04/30/18 16:00 04/30/18 16:15 04/30/18 16:30 Temperature Pulse Rate 112 H 113 H 104 H Respiratory Rate 24 23 22 Blood Pressure 150/106 H 159/107 H 153/102 H Pulse Oximetry 04/30/18 16:45 04/30/18 17:00 04/30/18 17:15 Temperature Pulse Rate 108 H 107 H 99 H Respiratory Rate 24 22 16 Blood Pressure 152/102 H 158/103 H 154/102 H Pulse Oximetry 04/30/18 17:30 04/30/18 17:45 04/30/18 18:00 Temperature Pulse Rate 98 H 97 H 98 H Respiratory Rate 20 20 19 Blood Pressure 144/99 H 139/97 H 137/99 H Pulse Oximetry 04/30/18 19:00 04/30/18 20:00 04/30/18 20:28 Temperature 98.9 F 98.9 F Pulse Rate 105 H 103 H 116 H Respiratory Rate 21 25 H 24 Blood Pressure 156/106 H 160/104 H 143/97 H Pulse Oximetry 95 95 95 04/30/18 20:36 04/30/18 21:00 04/30/18 21:28 Temperature Pulse Rate 108 H 108 H Respiratory Rate 21 21 Blood Pressure 145/91 H 145/91 H Pulse Oximetry 94 L 97 97 04/30/18 22:00 04/30/18 22:28 04/30/18 23:00 Temperature Pulse Rate 93 H 93 H 110 H Respiratory Rate 15 15 26 H Blood Pressure 143/95 H 143/95 H 147/95 H Pulse Oximetry 99 99 99 04/30/18 23:28 05/01/18 00:00 05/01/18 01:00 Temperature 98.3 F Pulse Rate 110 H 91 H 90 Respiratory Rate 26 H 14 17 Blood Pressure 147/95 H 148/91 H 146/94 H Pulse Oximetry 99 100 98 05/01/18 02:00 05/01/18 03:00 05/01/18 03:28 Temperature Pulse Rate 91 H 91 H 91 H Respiratory Rate 18 18 18 Blood Pressure 131/87 131/87 131/87 Pulse Oximetry 97 97 97 05/01/18 04:00 05/01/18 05:00 05/01/18 06:00 Temperature 98.7 F Pulse Rate 102 H 96 H 89 Respiratory Rate 16 19 16 Blood Pressure 144/92 H 146/98 H 138/96 H Pulse Oximetry 98 98 98 05/01/18 07:00 05/01/18 07:15 05/01/18 07:28 Temperature Pulse Rate 84 84 86 Respiratory Rate 16 15 15 Blood Pressure 141/94 H 137/94 H 157/106 H Pulse Oximetry 98 99 98 05/01/18 08:00 05/01/18 08:10 05/01/18 08:15 Temperature 98.2 F Pulse Rate 87 86 Respiratory Rate 16 14 Blood Pressure 137/88 136/89 Pulse Oximetry 98 98 98 05/01/18 08:30 05/01/18 08:45 05/01/18 09:00 Temperature Pulse Rate 116 H 106 H 97 H Respiratory Rate 24 17 17 Blood Pressure 157/106 H 152/102 H 143/100 H Pulse Oximetry 99 98 98 05/01/18 09:15 05/01/18 09:30 05/01/18 09:45 Temperature Pulse Rate 87 92 H 100 H Respiratory Rate 16 9 L 21 Blood Pressure 141/100 H 140/98 H 148/91 H Pulse Oximetry 97 99 98 05/01/18 10:00 05/01/18 11:00 05/01/18 11:15 Temperature Pulse Rate 97 H 86 103 H Respiratory Rate 17 16 37 H Blood Pressure 137/88 138/97 H 141/101 H Pulse Oximetry 97 98 94 L 05/01/18 11:30 05/01/18 11:45 05/01/18 12:00 Temperature Pulse Rate 96 H 99 H 97 H Respiratory Rate 20 16 17 Blood Pressure 152/103 H 162/103 H 136/85 Pulse Oximetry 98 98 97 Intake & Output 04/30/18 05/01/18 05/01/18 18:59 06:59 18:59 Intake Total 1000 / 1000 1000 / 1000 Output Total 1600 / 1600 850 / 850 Balance -600 / -600 150 / 150 Intake: IV 1000 / 1000 1000 / 1000 D5W/Normal Saline Inj 1,000 ML 1000 / 1000 1000 / 1000 @ 100 mls/hr IV.CONT .Q10H DONNIE Rx#:[id number] Oral 0 / 0 Output: Urine 200 / 200 850 / 850 Urine Amount (Catheter) 1400 / 1400 Indwelling Urethral Catheter 1400 / 1400 Other: # Bowel Movements 0 Narrative: The patient has a marked psychomotor retardation given her level of the lethargic - Constitutional no acute distress - Routine HEENT Exam Head: Present: normocephalic Eye: Present: EOMI, PERRL ENT: Present: mucous membranes moist Mental Status Examination Appearance: Appropriate Consciousness: Alert Orientation: x4 Motor Activity: Normal gait Speech: Unremarkable Language: Adequate Fund of Knowledge: Adequate Attention and Concentration: Inadequate Memory: Impaired Mood: Irritable Affect: Irritable, Labile Thought Process & Associations: Intact Thought Content: Appropriate Hallucination Type: None Suicidal Ideation: Yes Suicidal Plan: Yes Suicidal Intention: No Homicidal Ideation: No Homicidal Plan: No Homicidal Intention: No Insight: Poor Judgment: Poor Assessment and Plan - Assessment (1) Major depressive disorder, recurrent episode Code(s): F33.9 - Major depressive disorder, recurrent, unspecified Status: Acute - Plan Plan: Estimated LOS: [] days On psychiatric evaluation I find a patient that is irritable, oppositional, contradictory and very regarding recent suicidal attempt by overdosing with carbamazepine and clonazepam. This is a patient who has needed hemodialysis in order to lower the levels of carbamazepine from her body. She continues to deny suicidal ideation even though her mother, in the other hand, states that the patient has been endorsing suicidal ideation repeatedly in the last weeks. The patient has a psychiatric history of severe alcohol use disorder, anxiety, depression, bipolar disorder, which she denies, no prepsychotic hospitalizations , but very poor impulse control and reckless behavior as per mother. The patient does not clarify which he is taking carbamazepine for seizures or for bipolar disorder. At this moment the patient has an elevated risk of danger to self, she needs psychiatric admission for stabilization and safety. Patient should remain in 1:1 in the medical floor. I have not recommend any antidepressant at this moment. However she will remain in CICT protocol, especially given her history of alcohol withdrawal induced seizures. Transfer to psychiatry was medically stable. Justification for Continued Inpatient Stay: Patient has attempted to commit suicide, will be admitted in psychiatry for stabilization and safety.
[2018-05-02] MEDS ORDERED: Menthol 5.8 MG Lozenge BUCCAL ONE (01:01)
[2018-05-02] MEDS: Chlorhexidine Gluconate 2% 1 Pack (2 Cloths) TOPICAL SCH (05:10)
[2018-05-02 10:28] LABS: Baso % (Auto) 0.5 % (0.0-2.0); Eos # (Auto) 0.2 th/mm3 (0.0-0.4); Eos % (Auto) 2.8 % (0.0-4.0); Hematocrit 36.6 % (35.0-46.0); Hemoglobin 12.6 gm/dL (11.6-15.3); Lymph # (Auto) 1.1 th/mm3 (1.0-4.8); Lymph % (Auto) 15.5 % (9.0-44.0); Mean Corpuscular HGB Conc 34.3 % (32.0-36.0); Mean Corpuscular Volume 87.3 fL (80.0-100.0); Mono # (Auto) 0.3 th/mm3 (0.0-0.9); Mono % (Auto) 3.8 % (0.0-8.0); Neut # (Auto) 5.7 th/mm3 (1.8-7.7); Neut % (Auto) 77.4 % (16.0-70.0); Platelet Count 129 th/mm3 (150-450); Red Blood Count 4.19 mil/mm3 (4.00-5.30); Red Cell Distribution Width 13.4 % (11.6-17.2); White Blood Count 7.3 th/mm3 (4.0-11.0)
--- NOTE | 2018-05-02 10:30 | P.PNIM ---
Subjective Interval history: 04/30: 33-year-old female with past medical history of mood disorder for which she takes Tegretol. She is here under [place] Act for overdose of tegretol and benzodiazepine. She is not able to tell me when she took it or how much she took. She says it is NOT extended release Tegretol. She tells me she was not trying to harm herself, that she was just trying to go to sleep. No history of seizures. Initial tegretol level was 19.3, continued uptrend. Neuro status declining during period of ED observation. Her speech is slow and dysarthric and she has nystagmus, mydriasis, ataxia. She is not able to tell me if she is prescribed any other meds. 05/01: Patient was dialyzed yesterday for elevated Tegretol levels and altered mental status. Her mental status is much better today. Patient fell last night , head CT negative for bleed. She has some ecchymosis around left eye. She knows she is at the hospital. She knows it is 2017. She follows commands appropriately. Not in any acute distress. 05-02 transferred to our service today We will get labs today if stable she will be transferred to inpatient psychiatry Discussed with RN and patient Has had dialysis to remove the Tegretol Has questions about toxicology --only positive thing on toxicology was a Tegretol level and the alcohol level If labs are stable DC to inpatient psychiatry HYPOKALEMIA WILL REPLACE AND TRANSFER TO INPT PSYCHIATRY Physical Exam Vital signs: Vital Signs 05/01/18 11:00 05/01/18 11:15 05/01/18 11:30 Temperature Pulse Rate 86 103 H 96 H Respiratory Rate 16 37 H 20 Blood Pressure 138/97 H 141/101 H 152/103 H Pulse Oximetry 98 94 L 98 05/01/18 11:45 05/01/18 12:00 05/01/18 13:00 Temperature Pulse Rate 99 H 97 H 98 H Respiratory Rate 16 17 16 Blood Pressure 162/103 H 136/85 141/97 H Pulse Oximetry 98 97 97 05/01/18 13:15 05/01/18 13:30 05/01/18 13:45 Temperature Pulse Rate 105 H 111 H 94 H Respiratory Rate 13 14 12 Blood Pressure 137/96 H 141/98 H 139/93 H Pulse Oximetry 97 98 97 05/01/18 14:00 05/01/18 14:15 05/01/18 14:31 Temperature Pulse Rate 93 H 99 H 108 H Respiratory Rate 17 15 25 H Blood Pressure 129/93 H 138/98 H 135/92 H Pulse Oximetry 97 97 97 05/01/18 14:45 05/01/18 15:00 05/01/18 15:28 Temperature 98.3 F Pulse Rate 103 H 95 H 93 H Respiratory Rate 18 13 11 L Blood Pressure 135/84 117/74 115/71 Pulse Oximetry 97 98 05/01/18 16:00 05/01/18 16:15 05/01/18 16:30 Temperature Pulse Rate 95 H 99 H 101 H Respiratory Rate 11 L 10 L 10 L Blood Pressure 119/74 117/70 117/72 Pulse Oximetry 96 95 94 L 05/01/18 16:45 05/01/18 17:00 05/01/18 18:00 Temperature Pulse Rate 95 H 96 H 113 H Respiratory Rate 9 L 13 19 Blood Pressure 119/71 116/69 131/77 Pulse Oximetry 94 L 93 L 95 05/01/18 18:15 05/01/18 19:00 05/01/18 19:28 Temperature 98.8 F 98.7 F Pulse Rate 100 H 94 H 103 H Respiratory Rate 16 13 12 Blood Pressure 132/96 H 135/79 135/71 Pulse Oximetry 96 93 L 96 05/01/18 20:00 05/01/18 21:00 05/01/18 22:00 Temperature 98.8 F 98.6 F 98.5 F Pulse Rate 103 H 115 H 106 H Respiratory Rate 12 18 18 Blood Pressure 114/63 140/88 122/80 Pulse Oximetry 94 L 94 L 93 L 05/01/18 23:00 05/01/18 23:28 05/02/18 00:00 Temperature 98.7 F 98.2 F 98.2 F Pulse Rate 108 H 91 H 91 H Respiratory Rate 16 12 12 Blood Pressure 150/98 H 149/103 H 149/103 H Pulse Oximetry 94 L 93 L 93 L 05/02/18 01:00 05/02/18 02:00 05/02/18 03:00 Temperature 98.6 F 98.9 F 98.9 F Pulse Rate 124 H 96 H 77 Respiratory Rate 18 15 14 Blood Pressure 168/117 H 159/91 H 148/95 H Pulse Oximetry 96 95 95 05/02/18 04:00 05/02/18 05:00 05/02/18 06:00 Temperature 98.7 F 98.8 F 98 F Pulse Rate 91 H 86 96 H Respiratory Rate 10 L 17 14 Blood Pressure 151/99 H 152/94 H 154/101 H Pulse Oximetry 95 93 L 96 05/02/18 08:00 Temperature Pulse Rate Respiratory Rate Blood Pressure Pulse Oximetry 95 Intake & Output 05/01/18 05/02/18 05/02/18 18:59 06:59 18:59 Intake Total 1000 / 1000 480 / 480 Output Total 950 / 950 800 / 800 Balance 50 / 50 -320 / -320 Intake: IV 1000 / 1000 D5W/Normal Saline Inj 1,000 ML 1000 / 1000 @ 100 mls/hr IV.CONT .Q10H DONNIE Rx#:[id number] Oral 480 / 480 Output: Urine 250 / 250 800 / 800 Urine Amount (Catheter) 700 / 700 Indwelling Urethral Catheter 700 / 700 Narrative: GENERAL: Awake alert and oriented 3 talkative and cooperative has ecchymosis around left eye SKIN: Warm and dry. Has ecchymosis around left eye HEAD: Atraumatic. Normocephalic. EYES: Pupils equal and round. No scleral icterus. No injection or drainage. Ecchymosis around left eye EOMI ENT: No nasal bleeding or discharge. Mucous membranes pink and moist. Tongue is midline NECK: Trachea midline. No JVD. Supple CARDIOVASCULAR: Regular rate and rhythm. S1-S2 no S3 or S4 RESPIRATORY: No accessory muscle use. Clear to auscultation. Breath sounds equal bilaterally. GASTROINTESTINAL: Abdomen soft, non-tender, nondistended. Hepatic and splenic margins not palpable. MUSCULOSKELETAL: Extremities without clubbing, cyanosis, or edema. No obvious deformities. NEUROLOGICAL: Awake and alert. No obvious cranial nerve deficits. Motor grossly within normal limits. Five out of 5 muscle strength in the arms and legs. Normal speech. PSYCHIATRIC: Appropriate mood and affect; insight and judgment ABnormal. - Urinary Catheter Management Indwelling Urethral Catheter Cath placed during this visit: yes, but has since been removed by the nurse Reason for continuing: Decision to DC catheter Insertion date: 04/30/18 Insertion time: 13:15 Removal date: 05/01/18 Removal time: 12:31 Results - Labs CBC & Chem 7: 05/02/18 10:10 05/02/18 10:10 Laboratory Results - last 24 hr 05/02/18 05:39 Carbamazepine 8.6 - Imaging Head CT 04/30/18 03:03 CONCLUSION: 1. Negative noncontrast head CT. Head CT 04/30/18 20:35 CONCLUSION: 1. No acute intracranial abnormalities. Left periorbital soft tissue swelling. . Face CT 04/30/18 20:42 CONCLUSION: 1. Soft tissue swelling over the left periorbital region. No acute bony abnormality. - Procedures Hemodialysis Date of procedure: 04/30/18 Pre-op diagnosis: tegretol toxicity Post-op diagnosis: same Procedure: left femoral vein dialysis catheter placement: Ultrasound guidance : Yes After sterile prepping and draping using 1% lidocaine for local infiltration anesthesia, Left femoral vein was visualized using an ultrasound vessel finder and under direct visualization was cannulated using an introducer needle with dark nonpulsatile blood return. A Guidewire was passed through the introducer needle without any resistance and the needle was then removed. After making a skin jenny and dilation of tract, a 20 cm dual lumen dialysis catheter was passed over the guidewire by modified seldinger's technique into the left femoral vein up to the 19 cm antonia and the guidewire was then removed. Good blood return obtained through both ports which were then flushed with saline and subsequently hep-locked. After suturing the catheter in place, a Bio- occlusive dressing with biopatch was applied to the site. Patient tolerated the procedure well with no immediate complications noted. Anesthesia: local Estimated blood loss (mL): 5 Condition: stable Disposition: ICU Documented By: Lenard Berry MD Assessment and Plan - Plan Acute encephalopathy secondary to Tegretol and benzodiazepine overdose. -ataxia, nystagmus, mydriasis, vision changes, abnormal speech Alcocer act for suicidal tendencies Poison control was contacted by Dr. Manning. Emergently dialyzed 8-1 for elevated Tegretol levels. Tegretol level 15 this morning coming down. 8-3 is normal Monitor QRS and QTc. If QRS prolongs, will treat with bicarb. Seizure precautions, Ativan prn seizure. CT brain negative. Psychiatry consulted. RESP: On room air. Remains quite stable CV: Sinus tachycardia Monitor hemodynamics, monitor QRS and QTc intervals. Has stabilized GI: Advance p.o. diet as tolerated. Tolerating a diet FEN/RENAL: Discontinue Miner catheter. Status post emergent hemodialysis for elevated Tegretol level on 04/30. Vas-Cath to be discontinued. Nephrology consult noted. ID: Monitor for signs and symptoms of infection HEME: Monitor CBC for signs of hematologic toxicity ENDO: Euglycemic PROPH: SCDs and heparin subcu for DVT prophylaxis. Protonix for stress ulcer prophylaxis ACCESS: Peripheral IV. Will need Vas-Cath placement. HYPOKALEMIA WILL REPLACE Full code Patient WAS critically ill with life-threatening overdose with Tegretol. Without treatment could have refractory seizures, coma, . Required urgent consultation with nephrology for initiation of hemodialysis.--Much improved after hemodialysis If labs are stable can be discharged to inpatient psychiatry Code Status: full code Discussed Condition With: RN AND PT Discharge Planning: DC TO INPT PSYCHIATRY
--- NOTE | 2018-05-02 10:35 | P.DS ---
Date of admission: 04/30/18 03:14 Primary care physician: UNKNOWN Attending physician on discharge: Rodrigo Zimmerman Anticipated date of discharge: 05/02/18 Brief History from admission: 33-year-old female with past medical history of mood disorder for which she takes Tegretol. She is here under blabfeed Act for overdose of tegretol and benzodiazepine. She is not able to tell me when she took it or how much she took. She says it is NOT extended release Tegretol. She tells me she was not trying to harm herself, that she was just trying to go to sleep. No history of seizures. Initial tegretol level was 19.3, continued uptrend. Neuro status declining during period of ED observation. Her speech is slow and dysarthric and she has nystagmus, mydriasis, ataxia. She is not able to tell me if she is prescribed any other meds. DS: Diagnosis - Discharge Diagnosis (1) Alcohol use Status: Chronic (2) Carbamazepine overdose of undetermined intent Status: Acute (3) Major depressive disorder, recurrent episode Status: Acute DS: Summary Hospital Course: 04/30: 33-year-old female with past medical history of mood disorder for which she takes Tegretol. She is here under blabfeed Act for overdose of tegretol and benzodiazepine. She is not able to tell me when she took it or how much she took. She says it is NOT extended release Tegretol. She tells me she was not trying to harm herself, that she was just trying to go to sleep. No history of seizures. Initial tegretol level was 19.3, continued uptrend. Neuro status declining during period of ED observation. Her speech is slow and dysarthric and she has nystagmus, mydriasis, ataxia. She is not able to tell me if she is prescribed any other meds. 05/01: Patient was dialyzed yesterday for elevated Tegretol levels and altered mental status. Her mental status is much better today. Patient fell last night , head CT negative for bleed. She has some ecchymosis around left eye. She knows she is at the hospital. She knows it is 2018. She follows commands appropriately. Not in any acute distress. 82 transferred to our service today We will get labs today if stable she will be transferred to inpatient psychiatry Discussed with RN and patient Has had dialysis to remove the Tegretol Has questions about toxicology --only positive thing on toxicology was a Tegretol level and the alcohol level If labs are stable DC to inpatient psychiatry - Time Spent with Patient Total time spent providing and/or coordinating discharge services: Greater than 30 minutes - Quality: VTE Deep Vein Thrombosis/Pulmonary Embolism Present on Admission: No Exam Vital signs: Vital Signs 05/01/18 11:00 05/01/18 11:15 05/01/18 11:30 Temperature Pulse Rate 86 103 H 96 H Respiratory Rate 16 37 H 20 Blood Pressure 138/97 H 141/101 H 152/103 H Pulse Oximetry 98 94 L 98 05/01/18 11:45 05/01/18 12:00 05/01/18 13:00 Temperature Pulse Rate 99 H 97 H 98 H Respiratory Rate 16 17 16 Blood Pressure 162/103 H 136/85 141/97 H Pulse Oximetry 98 97 97 05/01/18 13:15 05/01/18 13:30 05/01/18 13:45 Temperature Pulse Rate 105 H 111 H 94 H Respiratory Rate 13 14 12 Blood Pressure 137/96 H 141/98 H 139/93 H Pulse Oximetry 97 98 97 05/01/18 14:00 05/01/18 14:15 05/01/18 14:31 Temperature Pulse Rate 93 H 99 H 108 H Respiratory Rate 17 15 25 H Blood Pressure 129/93 H 138/98 H 135/92 H Pulse Oximetry 97 97 97 05/01/18 14:45 05/01/18 15:00 05/01/18 15:28 Temperature 98.3 F Pulse Rate 103 H 95 H 93 H Respiratory Rate 18 13 11 L Blood Pressure 135/84 117/74 115/71 Pulse Oximetry 97 98 05/01/18 16:00 05/01/18 16:15 05/01/18 16:30 Temperature Pulse Rate 95 H 99 H 101 H Respiratory Rate 11 L 10 L 10 L Blood Pressure 119/74 117/70 117/72 Pulse Oximetry 96 95 94 L 05/01/18 16:45 05/01/18 17:00 05/01/18 18:00 Temperature Pulse Rate 95 H 96 H 113 H Respiratory Rate 9 L 13 19 Blood Pressure 119/71 116/69 131/77 Pulse Oximetry 94 L 93 L 95 05/01/18 18:15 05/01/18 19:00 05/01/18 19:28 Temperature 98.8 F 98.7 F Pulse Rate 100 H 94 H 103 H Respiratory Rate 16 13 12 Blood Pressure 132/96 H 135/79 135/71 Pulse Oximetry 96 93 L 96 05/01/18 20:00 05/01/18 21:00 05/01/18 22:00 Temperature 98.8 F 98.6 F 98.5 F Pulse Rate 103 H 115 H 106 H Respiratory Rate 12 18 18 Blood Pressure 114/63 140/88 122/80 Pulse Oximetry 94 L 94 L 93 L 05/01/18 23:00 05/01/18 23:28 05/02/18 00:00 Temperature 98.7 F 98.2 F 98.2 F Pulse Rate 108 H 91 H 91 H Respiratory Rate 16 12 12 Blood Pressure 150/98 H 149/103 H 149/103 H Pulse Oximetry 94 L 93 L 93 L 05/02/18 01:00 05/02/18 02:00 05/02/18 03:00 Temperature 98.6 F 98.9 F 98.9 F Pulse Rate 124 H 96 H 77 Respiratory Rate 18 15 14 Blood Pressure 168/117 H 159/91 H 148/95 H Pulse Oximetry 96 95 95 05/02/18 04:00 05/02/18 05:00 05/02/18 06:00 Temperature 98.7 F 98.8 F 98 F Pulse Rate 91 H 86 96 H Respiratory Rate 10 L 17 14 Blood Pressure 151/99 H 152/94 H 154/101 H Pulse Oximetry 95 93 L 96 05/02/18 08:00 Temperature Pulse Rate Respiratory Rate Blood Pressure Pulse Oximetry 95 Intake & Output 05/01/18 05/02/18 05/02/18 18:59 06:59 18:59 Intake Total 1000 / 1000 480 / 480 Output Total 950 / 950 800 / 800 Balance 50 / 50 -320 / -320 Intake: IV 1000 / 1000 D5W/Normal Saline Inj 1,000 ML 1000 / 1000 @ 100 mls/hr IV.CONT .Q10H ON LICENSE OF [facility] Rx#:[id number] Oral 480 / 480 Output: Urine 250 / 250 800 / 800 Urine Amount (Catheter) 700 / 700 Indwelling Urethral Catheter 700 / 700 Narrative: GENERAL: Awake alert and oriented 3 talkative and cooperative SKIN: Warm and dry. HEAD: Atraumatic. Normocephalic. Left orbital ecchymosis EYES: Pupils equal and round. No scleral icterus. No injection or drainage. Left orbital ecchymosis ENT: No nasal bleeding or discharge. Mucous membranes pink and moist. NECK: Trachea midline. No JVD. Supple CARDIOVASCULAR: Regular rate and rhythm. S1-S2 no S3 or S4 RESPIRATORY: No accessory muscle use. Clear to auscultation. Breath sounds equal bilaterally. GASTROINTESTINAL: Abdomen soft, non-tender, nondistended. Hepatic and splenic margins not palpable. MUSCULOSKELETAL: Extremities without clubbing, cyanosis, or edema. No obvious deformities. NEUROLOGICAL: Awake and alert. No obvious cranial nerve deficits. Motor grossly within normal limits. Five out of 5 muscle strength in the arms and legs. Normal speech. PSYCHIATRIC: Appropriate mood and affect; insight and judgment ABnormal. Results Procedures completed during hospitalization: Hemodialysis Date of procedure: 04/30/18 Pre-op diagnosis: tegretol toxicity Post-op diagnosis: same Procedure: left femoral vein dialysis catheter placement: Ultrasound guidance : Yes After sterile prepping and draping using 1% lidocaine for local infiltration anesthesia, Left femoral vein was visualized using an ultrasound vessel finder and under direct visualization was cannulated using an introducer needle with dark nonpulsatile blood return. A Guidewire was passed through the introducer needle without any resistance and the needle was then removed. After making a skin jenny and dilation of tract, a 20 cm dual lumen dialysis catheter was passed over the guidewire by modified seldinger's technique into the left femoral vein up to the 19 cm antonia and the guidewire was then removed. Good blood return obtained through both ports which were then flushed with saline and subsequently hep-locked. After suturing the catheter in place, a Bio- occlusive dressing with biopatch was applied to the site. Patient tolerated the procedure well with no immediate complications noted. Anesthesia: local Estimated blood loss (mL): 5 Condition: stable Disposition: ICU Documented By: Lenard Berry MD Completed studies during hospitalization: Laboratory Results WBC 7.3 th/mm3 (4.0-11.0) 05/02/18 10:10 RBC 4.19 mil/mm3 (4.00-5.30) 05/02/18 10:10 Hgb 12.6 gm/dL (11.6-15.3) 05/02/18 10:10 Hct 36.6 % (35.0-46.0) 05/02/18 10:10 MCV 87.3 fL (80.0-100.0) 05/02/18 10:10 MCH 30.0 pg (27.0-34.0) 05/02/18 10:10 MCHC 34.3 % (32.0-36.0) 05/02/18 10:10 RDW 13.4 % (11.6-17.2) 05/02/18 10:10 Plt Count 129 th/mm3 (150-450) L D 05/02/18 10:10 MPV 8.0 fL (7.0-11.0) 05/02/18 10:10 Neut % (Auto) 77.4 % (16.0-70.0) H 05/02/18 10:10 Lymph % (Auto) 15.5 % (9.0-44.0) 05/02/18 10:10 Logan % (Auto) 3.8 % (0.0-8.0) 05/02/18 10:10 Eos % (Auto) 2.8 % (0.0-4.0) 05/02/18 10:10 Baso % (Auto) 0.5 % (0.0-2.0) 05/02/18 10:10 Neut # (Auto) 5.7 th/mm3 (1.8-7.7) 05/02/18 10:10 Lymph # (Auto) 1.1 th/mm3 (1.0-4.8) 05/02/18 10:10 Logan # (Auto) 0.3 th/mm3 (0.0-0.9) 05/02/18 10:10 Eos # (Auto) 0.2 th/mm3 (0.0-0.4) 05/02/18 10:10 Baso # (Auto) 0.0 th/mm3 (0.0-0.2) 05/02/18 10:10 WBC Differential . 05/02/18 10:10 Differential Comment Auto diff final 05/02/18 10:10 Sodium 137 meq/L (136-145) 04/29/18 23:00 Potassium 3.5 meq/L (3.5-5.1) 04/29/18 23:00 Chloride 100 meq/L (98-107) 04/29/18 23:00 Carbon Dioxide 22.5 meq/L (21.0-32.0) 04/29/18 23:00 Anion Gap 15 meq/L (5-15) 04/29/18 23:00 BUN 11 mg/dL (7-18) 04/29/18 23:00 Creatinine 0.77 mg/dL (0.50-1.00) 04/29/18 23:00 Estimated GFR 86 mL/min (>89) L 04/29/18 23:00 Random Glucose 118 mg/dL (74-106) H 04/29/18 23:00 Calcium 8.1 mg/dL (8.5-10.1) L 04/29/18 23:00 Total Bilirubin 0.4 mg/dL (0.2-1.0) 04/29/18 23:00 AST 47 U/L (15-37) H 04/29/18 23:00 ALT 36 U/L (10-53) 04/29/18 23:00 Alkaline Phosphatase 109 U/L (45-117) 04/29/18 23:00 Total Creatine Kinase 184 U/L (26-192) 04/29/18 23:00 Total Protein 7.6 g/dL (6.4-8.2) 04/29/18 23:00 Albumin 4.0 g/dL (3.4-5.0) 04/29/18 23:00 TSH 1.980 uIU/mL (0.358-3.740) 04/29/18 23:00 Nasal Screen MRSA (PCR) Not detected (Negative) 04/30/18 08:06 Salicylates Less than 1.7 mg/dL (2.8-20.0) L 04/29/18 23:00 Urine Opiates Screen Neg (Neg) 04/30/18 03:30 Acetaminophen Less than 2.0 mcg/mL (10.0-30.0) L 04/30/18 02:00 Ur Barbiturates Screen Neg (Neg) 04/30/18 03:30 Carbamazepine 8.6 mcg/mL (4.0-12.0) 05/02/18 05:39 Ur Amphetamines Screen Neg (Neg) 04/30/18 03:30 U Benzodiazepines Scrn Neg (Neg) 04/30/18 03:30 Urine Cocaine Screen Neg (Neg) 04/30/18 03:30 U Cannabinoids Screen Neg (Neg) 04/30/18 03:30 Serum Alcohol 184 mg/dL (0-5) H 04/29/18 23:00 Hepatitis A IgM Ab Nonreactive (Nonreactive) 04/30/18 12:03 Hep Bs Antigen Nonreactive (Nonreactive) 04/30/18 12:03 Hep B Core IgM Ab Nonreactive (Nonreactive) 04/30/18 12:03 Hep C IgG Ab Nonreactive (Nonreactive) 04/30/18 12:[address] 04/30/18 20:35 CONCLUSION: 1. No acute intracranial abnormalities. Left periorbital soft tissue swelling. . Face CT 04/30/18 20:42 CONCLUSION: 1. Soft tissue swelling over the left periorbital region. No acute bony abnormality. Labs on day of discharge: Labs from last 24 hours 05/02/18 05/02/18 05/02/18 10:10 10:10 05:39 WBC Pending RBC Pending Hgb Pending Hct Pending Plt Count Pending WBC Differential Pending Differential Comment Pending Sodium Pending Potassium Pending Chloride Pending Carbon Dioxide Pending Anion Gap Pending BUN Pending Creatinine Pending Random Glucose Pending Calcium Pending Phosphorus Pending Magnesium Pending Total Bilirubin Pending AST Pending ALT Pending Alkaline Phosphatase Pending Total Protein Pending Albumin Pending Carbamazepine 8.6 - Impressions ITS Impressions Head CT 04/30/18 20:35 CONCLUSION: 1. No acute intracranial abnormalities. Left periorbital soft tissue swelling. . Face CT 04/30/18 20:42 CONCLUSION: 1. Soft tissue swelling over the left periorbital region. No acute bony abnormality. Discharge Plan - Discharge Disposition Patient Disposition: 64 Disc To [facility] - Discharge Condition Condition: Good - Discharge Order Discharge Orders: Discharge Order (Routine); Ordered 05/02/18 Ordered By: Rodrigo Zimmerman - Discharge Details Anticipated Discharge Date: 05/02/18 Discharge Comment: DC to inpatient psychiatry when labs are stable - Physicians Team Primary Care Provider: UNKNOWN, Attending Provider: Rodrigo Zimmerman Other Providers: Raymon Anderson MD ; David Ruiz MD
[2018-05-02 10:47] LABS: Alanine Aminotransferase 26 U/L (10-53); Albumin 3.7 g/dL (3.4-5.0); Anion Gap 8 meq/L (5-15); Aspartate Aminotransferase 42 U/L (15-37); Blood Urea Nitrogen 4 mg/dL (7-18); Calcium 8.8 mg/dL (8.5-10.1); Carbon Dioxide 27.8 meq/L (21.0-32.0); Chloride 101 meq/L (98-107); Glomerular Filtration Rate Greater Than 89 mL/min (>89); Glucose,Random 117 mg/dL (74-106); Magnesium 2.1 mg/dL (1.5-2.5); Phosphorus 2.5 mg/dL (2.5-4.9); Sodium 137 meq/L (136-145)
[2018-05-02 10:50] LABS: Alkaline Phosphatase 101 U/L (45-117)
[2018-05-02] MEDS ORDERED: Potassium Bicarbonate 25 MEQ Effervescent Tablet PO ONE (11:35)
[2018-05-02] MEDS: Pantoprazole Inj 40 MG Vial IV.PUSH SCH (12:30)
[2018-05-02] MEDS: Senna/Docusate Sodium 8.6/50 MG Tablet PO SCH (12:31)
== END 2018-05-02 15:35 ==
LOC: NEPC 22:21 → NEDA 04-30 03:14 → HIMC 04-30 07:55
PROVIDERS: ADMIT Hospitalist; ATTEND Hospitalist

== ENCOUNTER 2018-05-02 13:12 | Inpatient (IN) ==
[2018-05-02] MEDS ORDERED: Acetaminophen 325 MG Tablet PO PRN (16:58)
[2018-05-02] MEDS ORDERED: Aluminum/Magnesium/Simethacone Susp 30 ML UDC PO PRN (16:58)
[2018-05-02 18:30] LABS: Anion Gap 9 meq/L (5-15); Blood Urea Nitrogen 6 mg/dL (7-18); Calcium 9.2 mg/dL (8.5-10.1); Carbon Dioxide 28.9 meq/L (21.0-32.0); Chloride 99 meq/L (98-107); Glomerular Filtration Rate Greater Than 89 mL/min (>89); Glucose,Random 112 mg/dL (74-106); Potassium 3.3 meq/L (3.5-5.1); Sodium 137 meq/L (136-145)
[2018-05-02 18:31] LABS: Cholesterol 194 mg/dL (120-200)
[2018-05-02 18:34] LABS: Chol/HDL Ratio 1.48 Ratio; HDL Cholesterol 130.4 mg/dL (40.0-60.0); LDL Cholesterol,Calculated 42 mg/dL (0-99); Triglycerides 107 mg/dL (42-150)
[2018-05-02 22:18] LABS: Hemoglobin A1c 4.9 % (4.3-6.0)
[2018-05-02] MEDS: Benzonatate 100 MG Capsule PO PRN (23:40)
[2018-05-02] MEDS: Melatonin 5 MG Tablet PO PRN (23:41)
[2018-05-03] MEDS: Benzonatate 100 MG Capsule PO PRN ×2 (12:42→18:28)
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
[2018-05-03] MEDS: QUEtiapine 25 MG Tablet PO SCH (20:42)
[2018-05-04] MEDS: Benzonatate 100 MG Capsule PO PRN ×3 (02:39→21:18)
--- NOTE | 2018-05-04 19:56 | P.PNPSY ---
Subjective Remarks: Reviewed electronic medical records and discussed case with staff. Follow-up was conducted in patient's room. She reports that she is anxious to go home " in a good way". States that she slept well and has had a good appetite. Speech is clear logical and organized. Her mood is good her affect is euthymic. She states that she plans to get back into as well as get some outpatient therapy upon returning home. Her nurse did report that she came out to the nurses station earlier today complaining of a panic attack. The nurse advised the patient was breathing heavily and very tremulous. She was given as needed Atarax and calm down shortly afterwards with some coaching from the staff. Mental Status Examination Appearance: Other (In [facility]) Consciousness: Alert Orientation: Person, Place, Date/Time Motor Activity: Normal gait Speech: Unremarkable Language: Adequate Fund of Knowledge: Adequate Attention and Concentration: Adequate Memory: Impaired (Surrounding events of overdose) Mood: Sad Affect: Sad Thought Process & Associations: Intact, Goal directed, Linear Thought Content: Appropriate Hallucination Type: None Delusion Type: None Suicidal Ideation: No Suicidal Plan: No Suicidal Intention: No Homicidal Ideation: No Homicidal Plan: No Homicidal Intention: No Insight: Fair Judgment: Impulsive Assessment and Plan - Assessment (1) Major depressive disorder, recurrent episode Code(s): F33.9 - Major depressive disorder, recurrent, unspecified Status: Acute - Plan Plan: Patient will be reevaluated tomorrow by the attending psychiatrist. Continue with current treatment plan. Patient reports that she is hopeful for discharge. Justification for Continued Inpatient Stay: Moving this patient to a less restrictive environment would likely result in decompensation.
[2018-05-04] MEDS: QUEtiapine 25 MG Tablet PO SCH (21:13)
[2018-05-04] MEDS: Melatonin 5 MG Tablet PO PRN (22:30)
[2018-05-05] MEDS: Benzonatate 100 MG Capsule PO PRN ×2 (08:56→14:17)
--- NOTE | 2018-05-05 16:47 | P.DSPSY ---
Psychiatry Discharge Summary Inpatient Psychiatric care?: Yes Advance Directives: No Mental Health Advance Directive: No Health Care Proxy: No - Admission Admission Date: May 02, 2018 16:03 - Admission Diagnosis (1) Major depressive disorder, recurrent episode Code(s): F33.9 - Major depressive disorder, recurrent, unspecified (2) Alcohol use Code(s): Z78.9 - Other specified health status Brief History: Patient is a 33-year-old woman, , has 1 daughter, domiciled with parents, unemployed, with a past psychiatric history of depression and anxiety, no previous psychiatric admissions, no previous suicide attempts of interest behavior, with the alcohol use disorder, with no past medical history who was brought in under [employer] act due to overdose on Tegretol and benzodiazepines and required medical stabilization and subsequently admitted to the inpatient psychiatry for further evaluation and management for presumed suicide attempt. Patient was seen by consult liaison Dr. Hathaway during medical admission as stated below: The patient is a 33-year-old woman, domiciled with her parents and 18 month of daughter in [place], here in [facility] for medications, single, employed, with a psychiatric history of anxiety and depression, no previous psychiatric hospitalizations, no previous suicide attempts, severe alcohol use disorder, medical history of seizures secondary to alcohol withdrawal, who is here under [employer] Act for overdose of Tegretol and benzodiazepine. On initial presentation she was not able to tell to ER doctor when she took it or how much she took. She said it was NOT extended release Tegretol. She tells Er doctors she was not trying to harm herself, that she was just trying to go to sleep. No history of seizures. Initial tegretol level was 19.3, continued uptrend. Neuro status declining during period of ED observation. Her speech was initially slow and dysarthric and she has nystagmus, mydriasis, ataxia. The patient was dialyzed for elevated Tegretol and given her mental status. Her brain CT is negative. Consulted to psychiatry to address suicidal attempt. Psychiatric evaluation I find a patient that is still lethargic, but able to answer some of my questions. The patient seems to be a little bit confused, vague and contradictory regarding her recent suicidal attempt. The patient reports that she was not trying to commit suicide, she just wanted to take a "couple of pills " of her medications to sleep. The patient clarifies that she was here on vacation with her parents, everything was going okay, she became quite drunk "I do not really remember what happened to be honest". Patient is unable to clarify what is her psychiatric history, she says that she is not sure what is the reason to think carbamazepine, at the beginning she said that she is bipolar , but then she denies that. She says that "my primary physician is prescribing clonazepam and Tegretol for anxiety". When I try to clarify that Tegretol is not a medication indicated for anxiety, the patient became quite upset and irritable. The patient is just partially oriented in time and place, at times confused with fluctuating level of consciousness. I got collateral information from her mother Vijaya Dave, who clarifies that the patient has history of bipolar disorder, poor impulse control disorder, but she does not have a lot of details about her medications. She does say that the patient is an alcoholic, but at the same time she also reports that the patient has being verbalizing suicidal ideation repeatedly in the last week, "and at the same time going crazy things, like spending a lot of time in buttocks and tattoos in her body". The mother explains that the patient has been in several detox rehabs in the past, which he does not complete them. Her mother cannot specify if the patient had any recent acute stressor that might account for a suicide attempt. Her mother is in agreement that the patient is to be admitted in psychiatry for stabilization and safety and she needs treatment for severe alcoholism and depression. Past psychiatric history: History of anxiety and depression as per patient, as per mother the patient has bipolar disorder. No prepsychotic hospitalizations, she denies suicidal attempts. She is on carbamazepine and clonazepam, unknown dose. Past family history: There is no family members with psychiatric problems Past medical history: The patient has a history of seizures secondary to alcohol withdrawal Substance history: Patient denies the use of illegal drugs, but reports daily use of alcohol, she refuses to quantify the amount, but she has been detox rehabs in the past, she has history of withdrawal induced seizures Social history: The patient was born and raised in [place], she lives in [place] with her parents an 18 month old daughter, she is single, employed, her highest level of education is associated degree Patient was seen with nurse and therapist sitting in hospital bed noted B, cooperative. Patient states that she had come down to [facility] with her parents for vacation as well as a planned visit with her daughter's father and stated started drinking last week and during visit with her daughter's father he had returned back to [place] which upset her. She states that her mom also began to be physically sick and was planning to return back to [place] at which time she decided to "stay" and took Tegretol during an acute alcohol intoxication which she then told her family which she had done and had called EMS was brought to the hospital. Patient states that she did not know what she was thinking but that she does recall having drank excessively at that they. Patient states no prior suicide ideations prior to that event and at this time continues denied any suicide ideation. Patient states that she wants to live for her daughter family for self and wants to continue treatment and we sobriety as well. Patient denies any perceptional services or delusions. Rest of psychiatric ROS negative. History of stated above no change. Tobacco Use In Past 30 Days: Yes How Often Do You Have a Drink Containing Alcohol: Never Hospital Course: Patient is a 33-year-old woman, , has 1 daughter, domiciled with parents, unemployed, with a past psychiatric history of depression and anxiety, no previous psychiatric admissions, no previous suicide attempts of interest behavior, with the alcohol use disorder, with no past medical history who was brought in under [employer] act due to overdose on Tegretol and benzodiazepines and required medical stabilization and subsequently admitted to the inpatient psychiatry for further evaluation and management. Patient was started on quetiapine 50mg PO HS, buspirone 5mg PO TID, along with medications for medical issues which she tolerated well with no adverse drug reactions. She was not noted to have any behavioral disturbances with no physical aggression. She maintained stable mood and did not endorse any suicidal or homicidal ideation during admission and expressed remorsefulness from recent actions. He responded well to treatment, was noted to be cooperative with staff , had good behavioral control with no evidence of any verbal or physical aggressive behavior toward others and was noted to have stable mood with treatment. Upon discharge patient reported feeling good denied any perceptual disturbances nor suicidal ideations or homicidal ideations. She is future oriented and motivated to engage in substance rehabilitation program.Patient agreed to continue treatment and follow up appointments for continuity of care. Patient will be discharged to [facility] with plan to continue recommendations on an outpatient setting. Supportive psychotherapy provided. Suicide and violence risk assessment on day of discharge both suggest lower imminent risk, and the patient's level of function is adequate for planned level of outpatient care. Patient has maximized benefit from this inpatient psychiatric hospital stay and to return to psychiatric emergency room for any concerning psychiatric symptoms. Family agrees with plan. - Discharge Discharge Date: 05/05/18 - Discharge Diagnosis (1) Major depressive disorder, recurrent episode Code(s): F33.9 - Major depressive disorder, recurrent, unspecified Status: Acute (2) Alcohol use Code(s): Z78.9 - Other specified health status Status: Chronic Discharge Disposition: Home - Discharge Instructions Discharge Diet: Heart Healthy Diet Activities You Can Perform: Regular- No Restrictions - Discharge Time > 30 minutes Mental Status Examination Appearance: Appropriate Consciousness: Alert Orientation: Person, Place, Date/Time Motor Activity: Normal gait Speech: Unremarkable Language: Adequate Fund of Knowledge: Adequate Attention and Concentration: Adequate Memory: Impaired (Surrounding events of overdose) Mood: Appropriate Affect: Appropriate Thought Process & Associations: Intact, Goal directed, Linear Thought Content: Appropriate Hallucination Type: None Delusion Type: None Suicidal Ideation: No Suicidal Plan: No Suicidal Intention: No Homicidal Ideation: No Homicidal Plan: No Homicidal Intention: No Insight: Fair Judgment: Impulsive Discharge/Advance Care Plan - Results Vital Signs: Last Vital Signs Temp 98.7 F 05/05/18 06:00 Pulse 102 H 05/05/18 06:00 Resp 17 05/05/18 06:00 BP 146/100 H 05/05/18 06:00 Pulse Ox 96 05/05/18 06:00 Lab Results: Laboratory Results Hemoglobin A1c 4.9 % (4.3-6.0) 05/02/18 17:30 Triglycerides 107 mg/dL (42-150) 05/02/18 17:30 Cholesterol 194 mg/dL (120-200) 05/02/18 17:30 LDL Cholesterol, Calc 42 mg/dL (0-99) 05/02/18 17:30 HDL Cholesterol 130.4 mg/dL (40.0-60.0) H 05/02/18 17:30 Summary of Procedures: none Pending Results: None - Medications Number of antipsychotic medications at discharge: 1 - Discharge Care Plan Goals to Promote Your Health: * To prevent worsening of your condition and complications * To maintain your health at the optimal level Directions to Meet Your Goals: Take your medications as prescribed Follow your dietary instruction Follow activity as directed Keep your appointments as scheduled Take your immunizations and boosters as scheduled If your symptoms worsen call your PCP, if no PCP go to Urgent Care Center or Emergency Room For 22/04 questions related to your inpatient stay or results of tests pending at discharge, please contact Dr. Mohamud Garay MD at Smoking is Dangerous to Your Health. Avoid second hand smoking
== END 2018-05-05 15:27 | disposition home or self-care (01) ==
LOC: H4EA 16:03
PROVIDERS: ADMIT Student in an Organized Health Care Education/Training Program; ATTEND Student in an Organized Health Care Education/Training Program